=== PATIENT | female | born 1995 | race Caucasian/White ===

== ENCOUNTER 2020-10-23 13:33 | Outpatient (CLI) | payer OTHER ==
[2020-10-23 14:32] VITALS: BP 112/52; PULSE 95; RESP 14; TEMP 97.6
--- NOTE | 2020-10-28 16:39 | P.MSEPDOC ---
Presenting Problems - Arrival Data Date of Arrival on Unit: 10/23/20 Time of Arrival on Unit: 13:30 Mode of Transport: Ambulatory - Complaint OB-Reason for Admission/Chief Complaint: Other Comment: reports swelling/tingling in hands/feet, headache treated with tylenol, Medical History - Information : 3 Para: 2 Term: 2 : 0 Abortions: Spontaneous or Elective: 0 Number of Living Children: 2 - Gestational Age Gestational Age by SANDHYA (wks/days): 26 Weeks and 0 Days - History Complications: Prior , Placenta Previa Review of Systems - Review of Systems Constitutional: No problems Breast: No problems ENT: No problems Cardiovascular: No problems Respiratory: No problems Gastrointestinal: No problems Genitourinary: No problems Musculoskeletal: No problems Neurological: No problems Skin: No problems Vital Signs - Temperature Temperature: 97.6 F Temperature Source: Oral - Pulse Right Brachial Pulse Rate: 95 Pulse Assessment Method: Automatic Cuff - Respirations Respiratory Rate: 14 Oxygen Delivery Method: Room Air - Blood Pressure Right Arm Blood Pressure: 112/52 Blood Pressure Mean: 72 Blood Pressure Source: Automatic Cuff Medical Screen Scoring (Pre) - Cervical Exam Dilation: Exam Deferred Effacement: Exam Deferred - Uterine Contractions Frequency: N/A Duration: N/A Intensity: N/A - Maternal Vital Signs Maternal Temperature: N/A Maternal Blood Pressure: N/A Signs of Preeclampsia: Headache = 1 Maternal Respirations: N/A - Maternal Trauma Maternal Trauma: N/A - Assessment - Baby A Baseline FHR: 125 Heart Rate - NICHD Category: Category I (Normal) = 0 NST: Reactive Position: N/A - Total Score - Baby A Total Score - Baby A: 1 - Total Score - Baby B Total Score - Baby B: 1 - Total Score - Baby C Total Score - Baby C: 1 - Level of Risk - Baby A Level of Risk - Baby A: Low (0-5) - Level of Risk - Baby B Level of Risk - Baby B: Low (0-5) - Level of Risk - Baby C Level of Risk - Baby C: Low (0-5) Physician Notification (Pre) - Physician Notified Physician Notified Date: 10/23/20 Physician Notified Time: 14:20 New Order Received: Yes - Notification Comment Comment: reported visit, pt DOM, reported complaints as noted, physical assessment and v/s, movement active per pt and audible, no contractions, pain scale 0 Disposition - Disposition OB Disposition: Discharge to home Discharge Date: 10/23/20 Discharge Time: 14:30 I agree with the RN Medical Screening Exam: Yes Case reviewed; plan agreed upon as documented in EMR&OBIX.: Yes Diagnosis: RELATED CONDITIONS, UNSPECIFIED, SECOND TRIMESTER
== END 2020-10-23 14:30 | disposition home or self-care (01) ==
LOC: FBPOP 13:33
PROVIDERS: ATTEND Obstetrics & Gynecology
DX: O26.892 Other specified pregnancy related conditions, second trimester (principal); R51.9 Headache, unspecified; Z3A.26 26 weeks gestation of pregnancy
CPT/HCPCS: 99213

== ENCOUNTER 2020-12-24 12:11 | Emergency (ER) | payer OTHER ==
[2020-12-24 12:18] VITALS: BP 110/75; PULSE 82; RESP 21; TEMP 98.8
[2020-12-24] MEDS ORDERED: ALBUTEROL HFA INHALER INHALATION STA (12:28)
--- NOTE | 2020-12-24 12:34 | ED ---
SOB HPI - General Stated Complaint: VIN Time Seen by Provider: 12/24/20 12:11 Source: patient, EMS, RN notes reviewed Mode of arrival: EMS Limitations: no limitations - History of Present Illness Initial Comments: Is a 25-year-old female who currently is approximately 35 weeks and also has had history of pneumonia in the past but no history of diagnosed asthma or lung disease who states she's had shortness of breath and cough for the past 3 days getting worse today. She also has exertional dyspnea. Some discomfort. No fevers chills or sweats no known COVID-19 exposure no palpitations no dizziness no other symptoms no other modifying factors she does state that she is had inhalers in the past week she's had pneumonia. MD Complaint: shortness of breath, cough - Related Data Home Medications Medication Instructions Recorded Confirmed Pnv,Calcium 72/Iron/Folic Acid 1 tablet PO DAILY 10/23/20 12/24/20 [ Plus Tablet] Ferrous Sulfate [Feosol] 325 mg PO DAILY 12/24/20 12/24/20 Allergies Allergy/AdvReac Type Severity Reaction Status Date / Time Penicillins AdvReac Rash/Hives Verified 12/24/20 13:45 Review of Systems ROS Statement: Those systems with pertinent positive or pertinent negative responses have been documented in the HPI. ROS Other: All systems not noted in ROS Statement are negative. Past Medical History Past Medical History: No Reported History History of Any Multi-Drug Resistant Organisms: None Reported Past Surgical History: Section Past Psychological History: No Psychological Hx Reported Smoking Status: Never smoker Past Alcohol Use History: None Reported Past Drug Use History: None Reported General Exam - General Exam Comments Initial Comments: This is a well-developed well-nourished awake alert oriented 3 female Limitations: no limitations General appearance: alert, in no apparent distress Head exam: Present: atraumatic, normocephalic, normal inspection Eye exam: Present: normal appearance, PERRL, EOMI. Absent: scleral icterus, conjunctival injection, periorbital swelling ENT exam: Present: normal exam, mucous membranes moist Neck exam: Present: normal inspection. Absent: tenderness, meningismus, lymphadenopathy Respiratory exam: Present: decreased breath sounds, other (Occasional expiratory wheeze at the bases). Absent: respiratory distress, wheezes, rales, rhonchi, stridor, chest wall tenderness Cardiovascular Exam: Present: regular rate, normal rhythm, normal heart sounds. Absent: systolic murmur, diastolic murmur, rubs, gallop, clicks GI/Abdominal exam: Present: soft, normal bowel sounds, other (Uterus consistent with the stated gestational age). Absent: distended, tenderness, guarding, rebound, rigid Extremities exam: Present: normal inspection, full ROM, normal capillary refill. Absent: tenderness, pedal edema, joint swelling, calf tenderness Back exam: Present: normal inspection Neurological exam: Present: alert, oriented X3, CN II-XII intact Psychiatric exam: Present: normal affect, normal mood Skin exam: Present: warm, dry, intact, normal color. Absent: rash Course Vital Signs 12/24/20 12/24/20 12:11 12:18 Temperature 98.8 F Pulse Rate 82 Respiratory 20 21 Rate Blood Pressure 110/75 O2 Sat by Pulse 95 Oximetry Medical Decision Making - Medical Decision Making Patient did get improvement after using the inhaler at did discuss the findings with her the presentation is consistent with bronchitis and bronchospasm she will be sent home with the inhaler she is a follow-up with Dr. edouard when necessary - Lab Data Result diagrams: 12/24/20 12:41 12/24/20 12:41 Lab Results 12/24/20 12/24/20 12/24/20 Range/Units 12:41 12:41 12:41 WBC 7.8 (3.8-10.6) k/uL RBC 3.59 L (3.80-5.40) m/uL Hgb 11.5 (11.4-16.0) gm/dL Hct 32.3 L (34.0-46.0) % MCV 89.9 (80.0-100.0) fL MCH 32.1 (25.0-35.0) pg MCHC 35.8 (31.0-37.0) g/dL RDW 12.6 (11.5-15.5) % Plt Count 173 (150-450) k/uL MPV 9.7 Neutrophils % (Manual) 72 % Band Neuts % (Manual) 1 % Lymphocytes % (Manual) 21 % Monocytes % (Manual) 2 % Eosinophils % (Manual) 4 % Neutrophils # (Manual) 5.60 (1.3-7.7) k/uL Lymphocytes # (Manual) 1.64 (1.0-4.8) k/uL Monocytes # (Manual) 0.16 (0-1.0) k/uL Eosinophils # (Manual) 0.31 (0-0.7) k/uL Nucleated RBCs 0 (0-0) /100 WBC Manual Slide Review Performed PT 9.6 (9.0-12.0) sec INR 0.9 (<1.2) APTT 21.9 L (22.0-30.0) sec D-Dimer 0.81 H (<0.60) mg/L FEU Sodium 136 L (137-145) mmol/L Potassium 4.1 (3.5-5.1) mmol/L Chloride 110 H (98-107) mmol/L Carbon Dioxide 20 L (22-30) mmol/L Anion Gap 6 mmol/L BUN 4 L (7-17) mg/dL Creatinine 0.47 L (0.52-1.04) mg/dL Est GFR (CKD-EPI)AfAm >90 (>60 ml/min/1.73 sqM) Est GFR (CKD-EPI)NonAf >90 (>60 ml/min/1.73 sqM) Glucose 72 L (74-99) mg/dL Plasma Lactic Acid Arnol (0.7-2.0) mmol/L Calcium 8.7 (8.4-10.2) mg/dL Magnesium 1.6 (1.6-2.3) mg/dL Total Bilirubin 0.7 (0.2-1.3) mg/dL AST 19 (14-36) U/L ALT 8 (4-34) U/L Alkaline Phosphatase 186 H (38-126) U/L Creatine Kinase 39 (30-135) U/L Troponin I (0.000-0.034) ng/mL NT-Pro-B Natriuret Pep pg/mL Total Protein 5.8 L (6.3-8.2) g/dL Albumin 3.0 L (3.5-5.0) g/dL Coronavirus (PCR) (Not Detectd) 12/24/20 12/24/20 12/24/20 Range/Units 12:41 12:41 12:41 WBC (3.8-10.6) k/uL RBC (3.80-5.40) m/uL Hgb (11.4-16.0) gm/dL Hct (34.0-46.0) % MCV (80.0-100.0) fL MCH (25.0-35.0) pg MCHC (31.0-37.0) g/dL RDW (11.5-15.5) % Plt Count (150-450) k/uL MPV Neutrophils % (Manual) % Band Neuts % (Manual) % Lymphocytes % (Manual) % Monocytes % (Manual) % Eosinophils % (Manual) % Neutrophils # (Manual) (1.3-7.7) k/uL Lymphocytes # (Manual) (1.0-4.8) k/uL Monocytes # (Manual) (0-1.0) k/uL Eosinophils # (Manual) (0-0.7) k/uL Nucleated RBCs (0-0) /100 WBC Manual Slide Review PT (9.0-12.0) sec INR (<1.2) APTT (22.0-30.0) sec D-Dimer (<0.60) mg/L FEU Sodium (137-145) mmol/L Potassium (3.5-5.1) mmol/L Chloride (98-107) mmol/L Carbon Dioxide (22-30) mmol/L Anion Gap mmol/L BUN (7-17) mg/dL Creatinine (0.52-1.04) mg/dL Est GFR (CKD-EPI)AfAm (>60 ml/min/1.73 sqM) Est GFR (CKD-EPI)NonAf (>60 ml/min/1.73 sqM) Glucose (74-99) mg/dL Plasma Lactic Acid Arnol 0.7 (0.7-2.0) mmol/L Calcium (8.4-10.2) mg/dL Magnesium (1.6-2.3) mg/dL Total Bilirubin (0.2-1.3) mg/dL AST (14-36) U/L ALT (4-34) U/L Alkaline Phosphatase (38-126) U/L Creatine Kinase (30-135) U/L Troponin I <0.012 (0.000-0.034) ng/mL NT-Pro-B Natriuret Pep 113 pg/mL Total Protein (6.3-8.2) g/dL Albumin (3.5-5.0) g/dL Coronavirus (PCR) (Not Detectd) 12/24/20 Range/Units 12:41 WBC (3.8-10.6) k/uL RBC (3.80-5.40) m/uL Hgb (11.4-16.0) gm/dL Hct (34.0-46.0) % MCV (80.0-100.0) fL MCH (25.0-35.0) pg MCHC (31.0-37.0) g/dL RDW (11.5-15.5) % Plt Count (150-450) k/uL MPV Neutrophils % (Manual) % Band Neuts % (Manual) % Lymphocytes % (Manual) % Monocytes % (Manual) % Eosinophils % (Manual) % Neutrophils # (Manual) (1.3-7.7) k/uL Lymphocytes # (Manual) (1.0-4.8) k/uL Monocytes # (Manual) (0-1.0) k/uL Eosinophils # (Manual) (0-0.7) k/uL Nucleated RBCs (0-0) /100 WBC Manual Slide Review PT (9.0-12.0) sec INR (<1.2) APTT (22.0-30.0) sec D-Dimer (<0.60) mg/L FEU Sodium (137-145) mmol/L Potassium (3.5-5.1) mmol/L Chloride (98-107) mmol/L Carbon Dioxide (22-30) mmol/L Anion Gap mmol/L BUN (7-17) mg/dL Creatinine (0.52-1.04) mg/dL Est GFR (CKD-EPI)AfAm (>60 ml/min/1.73 sqM) Est GFR (CKD-EPI)NonAf (>60 ml/min/1.73 sqM) Glucose (74-99) mg/dL Plasma Lactic Acid Arnol (0.7-2.0) mmol/L Calcium (8.4-10.2) mg/dL Magnesium (1.6-2.3) mg/dL Total Bilirubin (0.2-1.3) mg/dL AST (14-36) U/L ALT (4-34) U/L Alkaline Phosphatase (38-126) U/L Creatine Kinase (30-135) U/L Troponin I (0.000-0.034) ng/mL NT-Pro-B Natriuret Pep pg/mL Total Protein (6.3-8.2) g/dL Albumin (3.5-5.0) g/dL Coronavirus (PCR) Not Detected (Not Detectd) - EKG Data -: EKG Interpreted by Me EKG Comments: Sinus rhythm of 81 ME interval 156 QRS 78 QT since QTC 394/457 nonspecific lateral configuration - Radiology Data Radiology results: report reviewed (I did review the imaging and report no acute findings are seen.), image reviewed Disposition Clinical Impression: Acute bronchitis, Bronchospasm Disposition: HOME SELF-CARE Condition: Good Instructions (If sedation given, give patient instructions): Bronchospasm (ED), Acute Bronchitis (ED) Additional Instructions: Use the inhaler 2 puffs 4 times a day when necessary Is patient prescribed a controlled substance at d/c from ED?: No Referrals: None,Stated [Primary Care Provider] - 1-2 days
[2020-12-24 12:54] LABS: HCT 32.3 % (34.0-46.0); HGB 11.5 gm/dL (11.4-16.0); MCH 32.1 pg (25.0-35.0); MCHC 35.8 g/dL (31.0-37.0); MCV 89.9 fL (80.0-100.0); Mean Platelet Volume 9.7; Platelet Count 173 k/uL (150-450); RBC 3.59 m/uL (3.80-5.40); RDW 12.6 % (11.5-15.5); WBC 7.8 k/uL (3.8-10.6)
[2020-12-24 13:06] LABS: ALT 8 U/L (4-34); AST 19 U/L (14-36); African American GFR (CKD) >90 (>60 ml/min/1.73 sqM); Alkaline Phosphatase 186 U/L (38-126); Anion Gap 6 mmol/L; Blood Urea Nitrogen 4 mg/dL (7-17); Calcium 8.7 mg/dL (8.4-10.2); Carbon Dioxide 20 mmol/L (22-30); Chloride 110 mmol/L (98-107); Creatine Kinase 39 U/L (30-135); Glucose 72 mg/dL (74-99); Magnesium 1.6 mg/dL (1.6-2.3); Non-African American GFR(CKD) >90 (>60 ml/min/1.73 sqM); Potassium 4.1 mmol/L (3.5-5.1); Sodium 136 mmol/L (137-145); Total Bilirubin 0.7 mg/dL (0.2-1.3); Total Protein 5.8 g/dL (6.3-8.2)
--- NOTE | 2020-12-24 13:06 | XR ---
EXAMINATION TYPE: XR chest 2V DATE OF EXAM: 12/24/2020 COMPARISON: NONE HISTORY: Chest pain TECHNIQUE: Frontal and lateral views of the chest are obtained. FINDINGS: There is no focal air space opacity. No evidence for pneumothorax. No pleural effusion. The cardiac silhouette size is within normal limits. The osseous structures are grossly intact. IMPRESSION: 1. No acute cardiopulmonary process.
[2020-12-24 13:22] LABS: INR 0.9 (<1.2); Partial Thromboplastin Time 21.9 sec (22.0-30.0); Prothrombin Time 9.6 sec (9.0-12.0)
[2020-12-24 13:35] LABS: Band Neutrophils % 1 %; D-Dimer 0.81 mg/L FEU (<0.60); Eosinophils # (M) 0.31 k/uL (0-0.7); Lymphocytes # (M) 1.64 k/uL (1.0-4.8); Monocytes # (M) 0.16 k/uL (0-1.0); Neutrophils % (M) 72 %; Nucleated Red Blood Cells 0 /100 WBC (0-0); Total Cells Counted 100
[2020-12-24] MEDS ORDERED: ACETAMINOPHEN TAB 325 MG TAB PO STA (14:20)
[2020-12-24] MEDS ORDERED: ONDANSETRON 4 MG/2 ML VIAL IVP STA (15:00)
--- NOTE | 2020-12-24 15:42 | CT ---
EXAMINATION TYPE: CT angio chest DATE OF EXAM: 12/24/2020 COMPARISON: HISTORY: dyspnea CT DLP: 297.7 mGycm Automated exposure control for dose reduction was used. CONTRAST: CTA scan of the thorax is performed with IV Contrast, patient injected with 100 mL of Isovue 370, pul monary embolism protocol. MIP images are created and reviewed. 3D reconstructed images are created on an independent workstation and reviewed. FINDINGS: LUNGS: The lungs are remarkable for bilateral patchy airspace disease. There is no pleural effusion o r pneumothorax seen. The tracheobronchial tree is patent. AORTA: No additional significant abnormality is seen. There are 4 super aortic branch vessels presen t. MEDIASTINUM: There is less than satisfactory enhancement of the pulmonary artery and its branches, th ere is no CT evidence for pulmonary embolism. There are no greater than 1 cm hilar or mediastinal ly mph nodes. No pericardial effusion is seen. OTHER: No additional significant abnormality is seen. IMPRESSION: EXAM IS NONDIAGNOSTIC TO EXCLUDE PULMONARY EMBOLUS. Correlate for Covid, pneumonia.
== END 2020-12-24 16:26 | disposition home or self-care (01) ==
LOC: EC 12:11
DX: O99.513 Diseases of the respiratory system complicating pregnancy, third trimester (principal); J20.9 Acute bronchitis, unspecified; Z3A.35 35 weeks gestation of pregnancy
CPT/HCPCS: 36415; 94640; 93005; 85379; 83880; 80053; 82550; 83605; 83735; 84484; 85025; 85610; 85730; 87635; 71046; 71275; 99285; 96374; Q9967

== ENCOUNTER 2021-01-24 06:08 | Inpatient (IN) | payer OTHER ==
[2021-01-20 15:27] VITALS: BMI 34.0
[2021-01-24] MEDS ORDERED: LACTATED RINGERS 1,000 ML IV ONE (06:23)
[2021-01-24] MEDS ORDERED: CLINDAMYCIN 900 MG in DEXTROSE 5% IN WATER 50 ML IVPB ONE ×2 (06:45)
[2021-01-24] MEDS ORDERED: GENTAMICIN 300 MG in SODIUM CHLORIDE 0.9% 100 ML IVPB ONE (06:45)
[2021-01-24] MEDS ORDERED: CITRIC ACID-SODIUM CITRATE 15 ML CUP PO ONE (06:45)
[2021-01-24 07:07] LABS: HCT 33.6 % (34.0-46.0); HGB 11.8 gm/dL (11.4-16.0); MCH 31.6 pg (25.0-35.0); MCHC 35.1 g/dL (31.0-37.0); MCV 90.1 fL (80.0-100.0); Mean Platelet Volume 10.1; Platelet Count 175 k/uL (150-450); RBC 3.72 m/uL (3.80-5.40); RDW 12.9 % (11.5-15.5)
[2021-01-24] MEDS ORDERED: ONDANSETRON 4 MG/2 ML VIAL ONE (07:56)
[2021-01-24] MEDS ORDERED: KETOROLAC 15 MG/ML 1 ML VIAL ONE (07:56)
[2021-01-24] MEDS ORDERED: MORPHINE SULFATE (PF) 0.3 MG/0.3 ML SYR ONE (07:56)
[2021-01-24] MEDS ORDERED: ZOLPIDEM 5 MG TAB PO PRN (08:45)
[2021-01-24] MEDS ORDERED: NALOXONE 0.4 MG/ML 1 ML VIAL IV PRN (08:45)
[2021-01-24] MEDS ORDERED: ONDANSETRON 4 MG/2 ML VIAL IVP PRN (08:45)
[2021-01-24] MEDS ORDERED: diphenhydrAMINE 50 MG CAP PO PRN (08:45)
[2021-01-24] MEDS ORDERED: MEASLES-MUMPS-RUBELLA VACC/PF 12,500 UNIT/0.5 ML VIAL SQ ONE (08:45)
[2021-01-24] MEDS ORDERED: diphenhydrAMINE 25 MG CAP PO PRN (08:45)
[2021-01-24] MEDS ORDERED: diphenhydrAMINE 50 MG/ML 1 ML VIAL IVP PRN ×2 (08:45)
[2021-01-24] MEDS ORDERED: SIMETHICONE 80 MG CHEWABLE PO PRN (08:45)
[2021-01-24] MEDS ORDERED: METOCLOPRAMIDE 5 MG/ML 2 ML VIAL IVP PRN (08:45)
--- NOTE | 2021-01-24 08:50 | P.HPOB ---
History of Present Illness H&P Date: 01/24/21 Chief Complaint: Intrauterine at term: Previous sections Aminata is a 25-year-old at 39 weeks gestation arise for repeat section. Her [facility] course included a transfer of care to [place] at approximately 33 weeks. It was during my the - that she receive [place] gamma and sugar test at her primary obstetricians prior to starting to see me, today she revealed that she not believe she got her [place] gamma prior to her transfer. I do not surfacing her until 33 weeks of . We will check her Rh antibody today and the weight baby's blood type for RhoGAM administration. Her course otherwise from my standpoint was unremarkable. Her vital signs are stable and she is afebrile. Her heart is regular, lungs are clear, extremities without pain. Abdomen soft gravid uterus is noted. heart tones baseline is somewhat between 05/13/2020 but otherwise reactive. Antibiotics have Been provided. All questions are answered for her and risks/benefits/alternatives were reviewed with the patient in detail. Past Medical History Past Medical History: No Reported History Additional Past Medical History / Comment(s): anemia, recent bronchitis now resolved History of Any Multi-Drug Resistant Organisms: None Reported Past Surgical History: Adenoidectomy, Section, Tonsillectomy Additional Past Surgical History / Comment(s): tubes in ears Past Anesthesia/Blood Transfusion Reactions: No Reported Reaction Past Psychological History: Depression Smoking Status: Never smoker Past Alcohol Use History: None Reported Past Drug Use History: None Reported - Past Family History Mother Family Medical History: No Reported History Medications and Allergies Home Medications Medication Instructions Recorded Confirmed Type Pnv,Calcium 72/Iron/Folic Acid 1 tablet PO DAILY 10/23/20 01/24/21 History [ Plus Tablet] Ferrous Sulfate [Feosol] 325 mg PO DAILY 12/24/20 01/24/21 History Allergies Allergy/AdvReac Type Severity Reaction Status Date / Time amoxicillin AdvReac Rash/Hives Verified 01/24/21 06:22 Exam Osteopathic Statement: *. No significant issues noted on an osteopathic structural exam other than those noted in the History and Physical/Consult. Vital Signs Temp Pulse Resp BP Pulse Ox 01/24/21 06:26 97.4 F L 75 16 113/66 97 Intake and Output 01/23/21 01/24/21 01/24/21 22:59 06:59 14:59 Other: Weight 78.471 kg - OBG Physical Exam Breast: both: normal (no masses) Abdomen: bowel sounds normal, no diffuse tenderness, no bruit present, no guarding noted, no hepatomegaly, no splenomegaly, no mass Vulva: both: normal Vagina: normal moisture, no discharge Cervix: no lesion, no discharge Uterus: normal size, normal contour Adnexa: both: normal Anus/Rectum: normal perianal skin, no rectal mass, no hemorrhoids, heme negative Results Result Diagrams: 01/24/21 06:30 Abnormal Lab Results - Last 24 Hours (Table) 01/24/21 Range/Units 06:30 RBC 3.72 L (3.80-5.40) m/uL Hct 33.6 L (34.0-46.0) %
--- NOTE | 2021-01-24 08:55 | P.OP ---
Date of Procedure: 01/24/21 Preoperative Diagnosis: Intrauterine at term: Prior sections Postoperative Diagnosis: Same with significant adhesions from prior section Procedure(s) Performed: Repeat low transverse section with lysis of adhesions Anesthesia: spinal Surgeon: Fortino Sandoval Plastic Surgery Specialist #1: Nydia Felton Estimated Blood Loss (ml): 580 IV fluids (ml): 1,100 Urine output (ml): 100 Pathology: none sent Condition: stable Disposition: floor Operative Findings: male scores of 9 and 10 at one and 5 minutes Pax and weight was 8 lbs. 6 oz. is noted that she has significant adhesions particularly within the taken tissues and omentum over the uterus. These were lysed free. There is also noted that during the delivery a extension up into the uterine muscle of approximate 3 cm full-thickness from what I can only assume is from her prior section whether there was a T or a bandage scissor used because the laceration or the anterior uterine muscle was actually above where we had extended the incision. Description of Procedure: Patient was taken to the operating suite where a spinal anesthetic was found be adequate. She was prepped and draped in normal sterile fashion and placed in the dorsal supine position with leftward tilt. Initially a Pfannenstiel skin incision was made and this incision was then carried through to the underlying layer of the fascia was second knife. Fascia was then nicked in the midline and this opening was extended laterally with Leal scissors. Dissection of scar tissue get through the incision fully was made. Once this was completed the ovaries are reviewed peritoneal opening noted. The superior and inferior aspect of the fascial incision however was elevated and bluntly and sharply dissected off the rectus muscles with careful visualization of bowel and bladder throughout this process. Once this was completed the peritoneal layer was then extended predominantly inferiorly with good visualization of both bowel bladder. Once this was completed bladder flap was identified elevated and entered with Metzenbaums. Scissors bladder was then bluntly dissected out of the operative field. Bladder blade was placed knife was then used to incise the uterus. This opening was then fully developed with a hemostat and then extended bluntly. Head was then atraumatically delivered followed by anterior posterior shoulders from right occiput anterior position. Mouth nares were then bulb suctioned and baby was fully delivered umbilical cords clamped cut usual fashion an nursery personnel was present to assume care. Placenta was then delivered intact Pitocin was added to the IV. Uterus was then exteriorized at this point the approximately 3 cm laceration or tear in the uterine wall was noted and was repaired with 0 Vicryl suture in running fashion down to level of our incision the incision was then closed in usual fashion with 0 Vicryl suture in running locking fashion with the first layer and then a running second layer to imbricate. Once excellent hemostasis was obtained blood and debris was suctioned from the posterior cul-de-sac and the uterus was reinserted into the abdomen. Peritoneal layer was then identified and marked with hemostats and closed with 0 Vicryl suture. Fascial layer was then closed with 0 Vicryl suture one layer of 3-0 Vicryl was used to reapproximate the subcuticular tissues the skin had undermining done to allow for the incision into blade flat again and 3- 0 Vicryl was then used to close incision subcuticularly. Sponge, lap, needle counts were all correct 2. Patient was then taken to the recovery room in stable and satisfactory condition.
[2021-01-24] MEDS: LACTATED RINGERS 1,000 ML IV SCH ×4 (09:18→21:20)
[2021-01-24] MEDS ORDERED: MORPHINE SULFATE 4 MG/ML SYRINGE IVP PRN (10:25)
[2021-01-24 10:27] LABS: Eosinophils # (M) 0.21 k/uL (0-0.7); Lymphocytes # (M) 1.68 k/uL (1.0-4.8); Monocytes # (M) 0.35 k/uL (0-1.0); Neutrophils # (M) 4.76 k/uL (1.3-7.7); Neutrophils % (M) 68 %; Nucleated Red Blood Cells 0 /100 WBC (0-0); Total Cells Counted 100
[2021-01-24 10:28] LABS: Anisocytosis (M) Present; Poikilocytosis (M) Present
[2021-01-24] MEDS: ACETAMINOPHEN TAB 500 MG TAB PO SCH ×2 (12:19→21:20)
[2021-01-24] MEDS: KETOROLAC 15 MG/ML 1 ML VIAL IVP SCH (16:07)
[2021-01-24] MEDS: SENNOSIDES-DOCUSATE SODIUM 1 EACH TAB PO SCH (21:20)
[2021-01-24] MEDS ORDERED: ALBUTEROL NEBULIZED 1.25 MG/3 ML INHALATION SCH (21:30)
[2021-01-25] MEDS: ACETAMINOPHEN TAB 500 MG TAB PO SCH ×4 (00:51→20:06)
[2021-01-25] MEDS: KETOROLAC 15 MG/ML 1 ML VIAL IVP SCH ×3 (01:21→08:08)
[2021-01-25] MEDS: LACTATED RINGERS 1,000 ML IV SCH (01:22)
[2021-01-25] MEDS ORDERED: ALBUTEROL NEBULIZED 2.5 MG/3 ML INHALATION ONE (01:42)
[2021-01-25] MEDS: ALBUTEROL NEBULIZED 2.5 MG/3 ML INHALATION SCH ×5 (01:48→19:06)
[2021-01-25 05:53] LABS: HCT 28.7 % (34.0-46.0); MCH 31.3 pg (25.0-35.0); MCHC 34.1 g/dL (31.0-37.0); MCV 91.8 fL (80.0-100.0); Mean Platelet Volume 10.4; Platelet Count 133 k/uL (150-450); RBC 3.13 m/uL (3.80-5.40); RDW 13.4 % (11.5-15.5); WBC 8.1 k/uL (3.8-10.6)
[2021-01-25 05:59] LABS: HGB 9.8 gm/dL (11.4-16.0)
[2021-01-25 06:59] LABS: Band Neutrophils % 2 %; Eosinophils # (M) 0.08 k/uL (0-0.7); Lymphocytes # (M) 1.54 k/uL (1.0-4.8); Monocytes # (M) 0.08 k/uL (0-1.0); Neutrophils % (M) 77 %; Nucleated Red Blood Cells 0 /100 WBC (0-0); Total Cells Counted 100
[2021-01-25 07:01] LABS: Large Platelets Present; Polychromasia Present
--- NOTE | 2021-01-25 07:38 | P.PNOBGPC ---
Subjective - Subjective Principal diagnosis: Postop day 1 Interval history: Aminata is seen and evaluated. She is able to ambulate and void without difficulty. She is tolerating her diet. It is noted that she is somewhat hypotensive with blood pressures in the high 80s and low 90s over 50s. However her pulse is in the 70s. She denies dizziness or lightheadedness or other signs or symptoms of hypovolemic shock. We will plan to continue her care for now. Her CBC is pending and that may play into how we moved forward, but her blood pressures even yesterday were 90s to low 100 100s over 50s to 60s so this seems consistent with what she is normally doing and this morning she is just waking up from sleep and otherwise feeling well. We'll continue to monitor this closely. All questions are answered for her at this time. Patient reports: Reports appetite normal, Reports voiding normally, Reports pain well controlled, Reports ambulating normally : doing well Objective - Vital Signs Latest vital signs: Vital Signs Temp Pulse Pulse Resp BP Pulse Ox 01/25/21 04:00 98 F 73 15 90/63 97 01/25/21 01:52 78 01/25/21 01:48 71 01/25/21 00:00 98 F 71 15 89/61 97 01/24/21 20:00 98 F 77 15 111/70 01/24/21 16:00 97.7 F 66 16 99/48 98 01/24/21 12:00 97.7 F 58 L 16 98/56 99 01/24/21 10:50 66 16 100/44 99 01/24/21 10:20 51 L 16 91/61 98 01/24/21 09:50 65 16 96/45 94 L 01/24/21 09:35 66 16 145/60 01/24/21 09:20 65 16 98/46 01/24/21 09:05 68 16 84/50 01/24/21 08:50 97.0 F L 82 16 88/49 Intake and Output 01/24/21 01/25/21 01/25/21 22:59 06:59 14:59 Output Total 300 150 Balance -300 -150 Output: Urine 300 150 Uretheral (Herring) 200 Other: # Voids 1 1 - Exam Lungs: bilateral: normal Chest: Normal S1, Normal S2 Extremities: Present: normal Abdomen: Present: normal appearance, soft. Absent: distention, tenderness Incision: Present: normal, dry, intact Uterus: Present: normal, firm - Labs Labs: Abnormal Lab Results - Last 24 Hours (Table) 01/25/21 Range/Units 05:20 RBC 3.13 L (3.80-5.40) m/uL Hgb 9.8 L D (11.4-16.0) gm/dL Hct 28.7 L (34.0-46.0) % Plt Count 133 L (150-450) k/uL
[2021-01-25] MEDS: SENNOSIDES-DOCUSATE SODIUM 1 EACH TAB PO SCH ×2 (08:08→20:06)
--- NOTE | 2021-01-25 10:21 | P.PN ---
Progress Note - Text Patient was seen at 6:20 AM in the morning. Postop day 1 from under spinal anesthesia with intrathecal morphine given for postop pain management. Patient is doing well. Pain is well controlled. On visual analog scale Mild itching present No nausea or vomiting reported. No Headache or weakness and numbness in the legs. No complications from spinal anesthesia.
[2021-01-25] MEDS: HYDROmorphone 2 MG TAB PO PRN ×2 (15:44→23:05)
[2021-01-25] MEDS: IBUPROFEN 600 MG TAB PO PRN (18:24)
[2021-01-26] MEDS: LACTATED RINGERS 1,000 ML IV SCH (00:23)
[2021-01-26] MEDS: IBUPROFEN 600 MG TAB PO PRN ×2 (04:06→10:32)
[2021-01-26] MEDS: ACETAMINOPHEN TAB 500 MG TAB PO SCH ×2 (05:52→08:10)
[2021-01-26] MEDS: ALBUTEROL NEBULIZED 2.5 MG/3 ML INHALATION SCH ×2 (08:04→09:07)
[2021-01-26] MEDS: SENNOSIDES-DOCUSATE SODIUM 1 EACH TAB PO SCH (08:10)
--- NOTE | 2021-01-26 09:01 | P.DS ---
Providers Date of admission: 01/24/21 06:08 Expected date of discharge: 01/26/21 Attending physician: Fortino Sandoval Primary care physician: Stated None Hospital Course: Aminata is doing very well post op day 2. She is ambulating, voiding and tolerating her diet. Voices complaints. Vital signs are stable and afebrile. Heart regular, lungs clear, extremities are without pain. Abdomen is soft, uterus is firm and incision is clean dry and intact. Assessment postop day 2. Plan discharged to home follow up with me in 1 week. Prescription for [place] and Motrin are forwarded to the pharmacy and all the questions are answered for her prior to discharge. She is stable for discharge at this time. Patient Condition at Discharge: Good Plan - Discharge Summary Discharge Rx Participant: Yes New Discharge Prescriptions: New Ibuprofen [Motrin] 600 mg PO Q6HR PRN #30 tab PRN Reason: Pain HYDROcodone/APAP 5-325MG [[place] 5-325] 1 tab PO Q4HR PRN #30 tab PRN Reason: Pain No Action Pnv,Calcium 72/Iron/Folic Acid [ Plus Tablet] 1 tablet PO DAILY Ferrous Sulfate [Feosol] 325 mg PO DAILY Discharge Medication List Pnv,Calcium 72/Iron/Folic Acid [ Plus Tablet] 1 tablet PO DAILY 10/23/20 [History] Ferrous Sulfate [Feosol] 325 mg PO DAILY 12/24/20 [History] HYDROcodone/APAP 5-325MG [[place] 5-325] 1 tab PO Q4HR PRN #30 tab 01/26/21 [Rx] Ibuprofen [Motrin] 600 mg PO Q6HR PRN #30 tab 01/26/21 [Rx] Follow up Appointment(s)/Referral(s): Fortino Sandoval DO [Doctor of Osteopathic Medicine] - 01/31/21 1:30 pm (6 week follow up March 07 @11am) Activity/Diet/Wound Care/Special Instructions: No heavy lifting, limit stairs and driving, and pelvic rest. If any high temperatures, heavy bleeding, or severe pain call my office Discharge Disposition: HOME SELF-CARE
[2021-01-26 09:12] VITALS: BP 109/55; RESP 16; TEMP 97.8
[2021-01-26 09:18] VITALS: PULSE 84
== END 2021-01-26 11:50 | disposition home or self-care (01) | DRG 788 ==
LOC: 4FBP 06:08
PROVIDERS: ADMIT Obstetrics & Gynecology; ATTEND Obstetrics & Gynecology
PROC: 10D00Z1 Extraction of Products of Conception, Low, Open Approach (ICD-10-PCS; principal; 2021-01-24 08:00)
DX: O34.211 Maternal care for low transverse scar from previous cesarean delivery (principal); K66.0 Peritoneal adhesions (postprocedural) (postinfection); Z37.0 Single live birth; Z3A.39 39 weeks gestation of pregnancy
CPT/HCPCS: 85025; 86762; 86850; 86900; 86901; 87340; 94640

== ENCOUNTER 2022-07-08 19:26 | Emergency (ER) | payer OTHER ==
[2022-07-08 19:52] VITALS: TEMP 97
[2022-07-08] MEDS ORDERED: ONDANSETRON 4 MG/2 ML VIAL IVP STA (21:40)
[2022-07-08] MEDS ORDERED: SODIUM CHLORIDE 0.9% 1,000 ML IV STA (21:40)
[2022-07-08] MEDS ORDERED: diphenhydrAMINE 50 MG/ML 1 ML VIAL IVP STA (21:41)
--- NOTE | 2022-07-08 21:41 | ED ---
Nausea/Vomiting/Diarrhea HPI - General Chief complaint: Nausea/Vomiting/Diarrhea Stated complaint: Vomiting-25 weeks preg. Time Seen by Provider: 07/08/22 21:33 Source: patient, RN notes reviewed, old records reviewed Mode of arrival: ambulatory Limitations: no limitations - History of Present Illness Initial comments: This is a 27-year-old female to the emergency department for evaluation. Patient presents today for evaluation regards to abdominal pain back pain. Positive 25 weeks. Significant nausea vomitus earlier today no travel history sick contacts no fevers. No traumas no surgeries. Patient otherwise no significant medical history takes no medications MD complaint: nausea, vomiting, abdominal pain, other (Back pain and cramping) -: hour(s) Description of Vomiting: food contents, watery Location: diffuse Radiation: other (Back) Severity: moderate Severity scale (1-10): 4 Quality: cramping Improves with: none Worsens with: none Context: other (Positive ) Associated Symptoms: loss of appetite, nausea/vomiting, weakness - Related Data Home Medications Medication Instructions Recorded Confirmed Vit No.180/Iron/Folic 1 tablet PO DAILY 10/23/20 01/24/21 [ Plus Tablet] Ferrous Sulfate [Feosol] 325 mg PO DAILY 12/24/20 01/24/21 Previous Rx's Medication Instructions Recorded HYDROcodone/APAP 5-325MG [[place] 1 tab PO Q4HR PRN #30 tab 01/26/21 5-325] Ibuprofen [Motrin] 600 mg PO Q6HR PRN #30 tab 01/26/21 Allergies Allergy/AdvReac Type Severity Reaction Status Date / Time amoxicillin AdvReac Rash/Hives Verified 07/08/22 19:49 Review of Systems ROS Statement: Those systems with pertinent positive or pertinent negative responses have been documented in the HPI. ROS Other: All systems not noted in ROS Statement are negative. Past Medical History Past Medical History: No Reported History Additional Past Medical History / Comment(s): anemia History of Any Multi-Drug Resistant Organisms: None Reported Past Surgical History: Adenoidectomy, Section, Ear Surgery, Tonsillectomy Additional Past Surgical History / Comment(s): tubes in ears Past Anesthesia/Blood Transfusion Reactions: No Reported Reaction Past Psychological History: Depression Smoking Status: Never smoker Past Alcohol Use History: None Reported Past Drug Use History: None Reported - Past Family History Mother Family Medical History: No Reported History General Exam Limitations: no limitations General appearance: alert, in no apparent distress Head exam: Present: atraumatic, normocephalic, normal inspection Eye exam: Present: normal appearance, PERRL, EOMI. Absent: scleral icterus, conjunctival injection, periorbital swelling ENT exam: Present: normal exam, mucous membranes moist Neck exam: Present: normal inspection. Absent: tenderness, meningismus, lymphadenopathy Respiratory exam: Present: normal lung sounds bilaterally. Absent: respiratory distress, wheezes, rales, rhonchi, stridor Cardiovascular Exam: Present: normal rhythm, tachycardia, normal heart sounds. Absent: systolic murmur, diastolic murmur, rubs, gallop, clicks GI/Abdominal exam: Present: soft, normal bowel sounds. Absent: distended, tenderness, guarding, rebound, rigid Extremities exam: Present: normal inspection, full ROM, normal capillary refill. Absent: tenderness, pedal edema, joint swelling, calf tenderness Back exam: Present: normal inspection Neurological exam: Present: alert, oriented X3, CN II-XII intact Psychiatric exam: Present: normal affect, normal mood Skin exam: Present: warm, dry, intact, normal color. Absent: rash Course Vital Signs 07/08/22 07/08/22 19:49 23:30 Temperature 97.0 F L Pulse Rate 121 H 94 Respiratory 18 15 Rate Blood Pressure 93/54 97/56 O2 Sat by Pulse 98 96 Oximetry - Reevaluation(s) Reevaluation #1: 07/08/22 23:17 Medical record is reviewed Reevaluation #2: 07/09/22 01:27 Patient informed of results and questions answered Reevaluation #3: 07/09/22 01:27 Symptoms improved here in the ER Medical Decision Making - Medical Decision Making 27 female department for evaluation patient resents today for evaluation of nausea vomiting abdominal pain back pain and diarrhea. Patient symptoms are dramatically improved now resolved here in the ER she can be discharged home - Lab Data Result diagrams: 07/08/22 21:53 07/08/22 21:53 Lab Results 07/08/22 07/08/22 07/08/22 Range/Units 21:53 21:53 21:53 WBC 9.4 (3.8-10.6) k/uL RBC 4.72 (3.80-5.40) m/uL Hgb 14.9 (11.4-16.0) gm/dL Hct 43.0 (34.0-46.0) % MCV 91.1 (80.0-100.0) fL MCH 31.5 (25.0-35.0) pg MCHC 34.6 (31.0-37.0) g/dL RDW 13.5 (11.5-15.5) % Plt Count 237 (150-450) k/uL MPV 11.1 Neutrophils % (Manual) 81 % Band Neuts % (Manual) 14 % Lymphocytes % (Manual) 4 % Monocytes % (Manual) 1 % Neutrophils # (Manual) 8.90 H (1.3-7.7) k/uL Lymphocytes # (Manual) 0.38 L (1.0-4.8) k/uL Monocytes # (Manual) 0.09 (0-1.0) k/uL Nucleated RBCs 0 (0-0) /100 WBC Manual Slide Review Performed Sodium 138 (137-145) mmol/L Potassium 4.7 (3.5-5.1) mmol/L Chloride 109 H (98-107) mmol/L Carbon Dioxide 17 L (22-30) mmol/L Anion Gap 12 mmol/L BUN 14 (7-17) mg/dL Creatinine 0.65 (0.52-1.04) mg/dL Est GFR (CKD-EPI)AfAm >90 (>60 ml/min/1.73 sqM) Est GFR (CKD-EPI)NonAf >90 (>60 ml/min/1.73 sqM) Glucose 102 H (74-99) mg/dL Plasma Lactic Acid Arnol 1.1 (0.7-2.0) mmol/L Calcium 9.0 (8.4-10.2) mg/dL Phosphorus 3.9 (2.5-4.5) mg/dL Magnesium 1.7 (1.6-2.3) mg/dL Total Bilirubin 0.7 (0.2-1.3) mg/dL AST 22 (14-36) U/L ALT 17 (4-34) U/L Alkaline Phosphatase 123 (38-126) U/L Troponin I (0.000-0.034) ng/mL Total Protein 7.8 (6.3-8.2) g/dL Albumin 4.4 (3.5-5.0) g/dL 07/08/22 Range/Units 21:53 WBC (3.8-10.6) k/uL RBC (3.80-5.40) m/uL Hgb (11.4-16.0) gm/dL Hct (34.0-46.0) % MCV (80.0-100.0) fL MCH (25.0-35.0) pg MCHC (31.0-37.0) g/dL RDW (11.5-15.5) % Plt Count (150-450) k/uL MPV Neutrophils % (Manual) % Band Neuts % (Manual) % Lymphocytes % (Manual) % Monocytes % (Manual) % Neutrophils # (Manual) (1.3-7.7) k/uL Lymphocytes # (Manual) (1.0-4.8) k/uL Monocytes # (Manual) (0-1.0) k/uL Nucleated RBCs (0-0) /100 WBC Manual Slide Review Sodium (137-145) mmol/L Potassium (3.5-5.1) mmol/L Chloride (98-107) mmol/L Carbon Dioxide (22-30) mmol/L Anion Gap mmol/L BUN (7-17) mg/dL Creatinine (0.52-1.04) mg/dL Est GFR (CKD-EPI)AfAm (>60 ml/min/1.73 sqM) Est GFR (CKD-EPI)NonAf (>60 ml/min/1.73 sqM) Glucose (74-99) mg/dL Plasma Lactic Acid Arnol (0.7-2.0) mmol/L Calcium (8.4-10.2) mg/dL Phosphorus (2.5-4.5) mg/dL Magnesium (1.6-2.3) mg/dL Total Bilirubin (0.2-1.3) mg/dL AST (14-36) U/L ALT (4-34) U/L Alkaline Phosphatase (38-126) U/L Troponin I <0.012 (0.000-0.034) ng/mL Total Protein (6.3-8.2) g/dL Albumin (3.5-5.0) g/dL - EKG Data -: EKG Interpreted by Me (EKG shows sinus rhythm 98 VT 142 QRS 75 QTC 394) Disposition Clinical Impression: Dehydration, Gastroenteritis, Nausea and vomiting during Disposition: HOME SELF-CARE Condition: Good Instructions (If sedation given, give patient instructions): Acute Nausea and Vomiting (ED) Is patient prescribed a controlled substance at d/c from ED?: No Referrals: None,Stated [Primary Care Provider] - 1-2 days Time of Disposition: 01:30
[2022-07-08 22:27] LABS: ALT 17 U/L (4-34); AST 22 U/L (14-36); African American GFR (CKD) >90 (>60 ml/min/1.73 sqM); Albumin 4.4 g/dL (3.5-5.0); Alkaline Phosphatase 123 U/L (38-126); Anion Gap 12 mmol/L; Blood Urea Nitrogen 14 mg/dL (7-17); Carbon Dioxide 17 mmol/L (22-30); Chloride 109 mmol/L (98-107); Glucose 102 mg/dL (74-99); Magnesium 1.7 mg/dL (1.6-2.3); Non-African American GFR(CKD) >90 (>60 ml/min/1.73 sqM); Phosphorus 3.9 mg/dL (2.5-4.5); Potassium 4.7 mmol/L (3.5-5.1); Sodium 138 mmol/L (137-145); Total Bilirubin 0.7 mg/dL (0.2-1.3); Total Protein 7.8 g/dL (6.3-8.2)
[2022-07-08] MEDS ORDERED: ACETAMINOPHEN IV (For NPO) 1,000 MG in EMPTY BAG 1 BAG IVPB STA (22:30)
[2022-07-08 23:18] LABS: HGB 14.9 gm/dL (11.4-16.0); MCH 31.5 pg (25.0-35.0); MCHC 34.6 g/dL (31.0-37.0); MCV 91.1 fL (80.0-100.0); Mean Platelet Volume 11.1; Platelet Count 237 k/uL (150-450); RBC 4.72 m/uL (3.80-5.40); RDW 13.5 % (11.5-15.5); WBC 9.4 k/uL (3.8-10.6)
[2022-07-09 00:08] LABS: Band Neutrophils % 14 %; Lymphocytes # (M) 0.38 k/uL (1.0-4.8); Monocytes # (M) 0.09 k/uL (0-1.0); Neutrophils % (M) 81 %; Nucleated Red Blood Cells 0 /100 WBC (0-0); Total Cells Counted 100
[2022-07-09 01:14] LABS: Appearance,Urine Cloudy (Clear); Bacteria,Urine Occasional /hpf; Bilirubin,Urine Negative (Negative); Blood,Urine Negative (Negative); Color,Urine Yellow; Glucose,Urine (UA) Negative (Negative); Hyaline Casts,Urine 16 /lpf (0-2); Ketones,Urine 3+ (Negative); Leukocyte Esterase,Urine Negative (Negative); Mucus,Urine Many /hpf; Nitrite,Urine Negative (Negative); Protein,Urine 1+ (Negative); RBC,Urine 3 /hpf (0-5); Squamous Epithelial Cell,Urine 16 /hpf (0-4); Urobilinogen,Urine <2.0 mg/dL (<2.0); WBC,Urine 2 /hpf (0-5)
[2022-07-09 01:27] LABS: Specific Gravity,Urine 1.048 (1.001-1.035)
[2022-07-09 01:49] VITALS: BP 100/61; PULSE 87; RESP 18
== END 2022-07-09 01:48 | disposition home or self-care (01) ==
LOC: EC 19:26
DX: O99.612 Diseases of the digestive system complicating pregnancy, second trimester (principal); O21.8 Other vomiting complicating pregnancy; K92.89 Other specified diseases of the digestive system; F32.A Depression, unspecified; Z88.0 Allergy status to penicillin; Z3A.25 25 weeks gestation of pregnancy
CPT/HCPCS: 36415; 93005; 80053; 83605; 83735; 84100; 84484; 85025; 81001; 99284; 96374; 96375 ×2; 96361; J1200; J2405; J0131

== ENCOUNTER 2022-07-25 20:40 | Emergency (ER) | payer OTHER ==
[2022-07-25 20:51] VITALS: RESP 18; TEMP 98
[2022-07-25] MEDS ORDERED: ACETAMINOPHEN TAB 500 MG TAB PO STA (21:50)
[2022-07-25] MEDS ORDERED: dexAMETHasone ORAL SOLUTION 4 MG/ML VIAL PO ONE (21:51)
[2022-07-25] MEDS ORDERED: IPRATROPIUM-ALBUTEROL 3 ML NEB INHALATION STA (21:51)
--- NOTE | 2022-07-25 22:09 | ED ---
URI HPI - General Chief Complaint: Upper Respiratory Infection Stated Complaint: 27 Weeks, SOB Time Seen by Provider: 07/25/22 21:34 Source: patient, RN notes reviewed Mode of arrival: ambulatory Limitations: no limitations - History of Present Illness Initial Comments: This is a pleasant 27-year-old female who is 27 weeks . Patient presents to the right department complaining of cough, runny nose, wheezing, and some shortness of breath. Patient has no history of asthma. Patient has been exposed to other ill individuals. Patient denying any abdominal pain or pelvic pain. No vaginal bleeding. No headache, no fever or chills, no changes in vision or hearing, no sore throat or difficulty with speech, no neck pain, no chest pain, no abdominal pain, no nausea or vomiting, no changes in urination or bowel movements, no numbness or tingling, no extremity pain, no skin rashes or lesions. Past medical, surgical, social, and family history reviewed. MD Complaint: cough, rhinorrhea, nasal congestion - Related Data Home Medications Medication Instructions Recorded Confirmed Vit No.180/Iron/Folic 1 tablet PO DAILY 10/23/20 01/24/21 [ Plus Tablet] Ferrous Sulfate [Feosol] 325 mg PO DAILY 12/24/20 01/24/21 Previous Rx's Medication Instructions Recorded HYDROcodone/APAP 5-325MG [[place] 1 tab PO Q4HR PRN #30 tab 01/26/21 5-325] Ibuprofen [Motrin] 600 mg PO Q6HR PRN #30 tab 01/26/21 Albuterol Inhaler [Ventolin Hfa 2 puff INHALATION Q4HR PRN #1 each 07/25/22 Inhaler] predniSONE 50 mg PO DAILY #3 tab 07/25/22 Allergies Allergy/AdvReac Type Severity Reaction Status Date / Time amoxicillin AdvReac Rash/Hives Verified 07/25/22 20:51 Review of Systems ROS Statement: Those systems with pertinent positive or pertinent negative responses have been documented in the HPI. ROS Other: All systems not noted in ROS Statement are negative. Past Medical History Past Medical History: No Reported History Additional Past Medical History / Comment(s): anemia History of Any Multi-Drug Resistant Organisms: None Reported Past Surgical History: Adenoidectomy, Section, Ear Surgery, Tonsillectomy Additional Past Surgical History / Comment(s): tubes in ears Past Anesthesia/Blood Transfusion Reactions: No Reported Reaction Past Psychological History: Depression Smoking Status: Never smoker Past Alcohol Use History: None Reported Past Drug Use History: None Reported - Past Family History Mother Family Medical History: No Reported History General Exam - General Exam Comments Initial Comments: Patient does not appear to be ill or toxic. No evidence of tachypnea or increased work of breathing. Limitations: no limitations General appearance: alert, in no apparent distress Head exam: Present: atraumatic, normocephalic, normal inspection Eye exam: Present: normal appearance, PERRL, EOMI. Absent: scleral icterus, conjunctival injection, periorbital swelling ENT exam: Present: normal exam, normal oropharynx, mucous membranes dry, mucous membranes moist, TM's normal bilaterally, normal external ear exam Neck exam: Present: normal inspection, full ROM. Absent: tenderness, meningismus, lymphadenopathy Respiratory exam: Present: wheezes (Expiratory wheezes bilaterally), chest wall tenderness, accessory muscle use. Absent: respiratory distress, rales, rhonchi, stridor Cardiovascular Exam: Present: regular rate, normal rhythm, normal heart sounds. Absent: systolic murmur, diastolic murmur, rubs, gallop, clicks GI/Abdominal exam: Present: soft, normal bowel sounds. Absent: distended, tenderness, guarding, rebound, rigid Extremities exam: Present: normal inspection, full ROM, normal capillary refill. Absent: tenderness, pedal edema, joint swelling, calf tenderness Back exam: Present: normal inspection Neurological exam: Present: alert, oriented X3, CN II-XII intact Psychiatric exam: Present: normal affect, normal mood Skin exam: Present: warm, dry, intact, normal color. Absent: rash Course Vital Signs 07/25/22 07/25/22 07/25/22 20:49 22:09 22:29 Temperature 98 F Pulse Rate 83 86 72 Respiratory 18 18 Rate Blood Pressure 92/56 112/56 O2 Sat by Pulse 95 98 Oximetry 07/25/22 07/25/22 22:39 22:59 Temperature Pulse Rate 75 Respiratory Rate Blood Pressure O2 Sat by Pulse 96 Oximetry - Reevaluation(s) Reevaluation #1: 07/25/22 23:25 Patient was reevaluated and still has some expiratory wheezes. 2+ of albuterol ordered. We'll send the patient home with a spacer. Patient no tachypnea. No respiratory distress. Says she feels better and feels well enough to go home. Medical Decision Making - Medical Decision Making Differential diagnosis: RSV, influenza, COVID-19, viral bronchitis with bronchospasm. Less likely bacterial pneumonia. We'll have labor and delivery assess heart tones. Patient states she had bronchitis during her last and had to be on an inhaler as well. Patient improved after breathing treatments here in the ER. I did consider a chest x-ray. However given the patient's and well appearance, lack of fever. This was deferred to shared decision-making. Discussed risks versus benefits of treatment with the patient. Patient voices understanding. We'll have the patient call her carbon paper coating machine setter in the morning to schedule a reevaluation. Albuterol inhaler for home. 3 days of prednisone. Did consider antibiotics. However the patient is afebrile. Does not appear to be ill or toxic. Suspect this is a viral illness. Antibiotics deferred. Shared decision-making. Patient was told to return to the ER for any signs or symptoms worsen. Told to return immediately if any other problems arise. All questions answered. Treatment plan discussed. Patient in agreement Every effort has been made to ensure accuracy of this dictation. However, due to the limitations of electronic medical records and dictation devices, errors in charting still occur. The case was discussed in detail with ED attending physician. Presentation, findings, treatment plan discussed in detail. Supervising physician Dr. Oshea - Lab Data Lab Results 07/25/22 Range/Units 20:53 Influenza Type A (PCR) Not Detected (Not Detectd) Influenza Type B (PCR) Not Detected (Not Detectd) RSV (PCR) Not Detected (Not Detectd) SARS-CoV-2 (PCR) Not Detected (Not Detectd) Disposition Clinical Impression: Acute bronchitis with bronchospasm Disposition: HOME SELF-CARE Condition: Stable Instructions (If sedation given, give patient instructions): Acute Bronchitis (ED), Bronchospasm (ED), How to Use a Metered-Dose Inhaler (ED) Additional Instructions: Albuterol 2 puffs every 4 hours as needed for wheezing. Prednisone as directed. Call the carbon paper coating machine setter at 8 AM in the morning to schedule reevaluation as soon as possible. Follow-up with your regular physician as directed. Return to the ER immediately if any symptoms worsen, new symptoms arise, or any other problems develop. Prescriptions: predniSONE 50 mg PO DAILY #3 tab Albuterol Inhaler [Ventolin Hfa Inhaler] 2 puff INHALATION Q4HR PRN #1 each PRN Reason: Wheezing Is patient prescribed a controlled substance at d/c from ED?: No Referrals: None,Stated [Primary Care Provider] - 1-2 days Time of Disposition: 23:28
[2022-07-25] MEDS ORDERED: ALBUTEROL HFA INHALER INHALATION STA (22:50)
[2022-07-25 23:36] VITALS: BP 105/52; PULSE 98
== END 2022-07-25 23:35 | disposition home or self-care (01) ==
LOC: EC 20:40
DX: O99.512 Diseases of the respiratory system complicating pregnancy, second trimester (principal); J20.9 Acute bronchitis, unspecified; O99.342 Other mental disorders complicating pregnancy, second trimester; F32.A Depression, unspecified; Z88.0 Allergy status to penicillin; Z3A.27 27 weeks gestation of pregnancy; Z20.822 Contact with and (suspected) exposure to COVID-19
CPT/HCPCS: 94640 ×2; 87636; 99285; J8540

== ENCOUNTER 2023-01-17 11:17 | Emergency (ER) | payer OTHER ==
[2023-01-17 11:29] VITALS: BP 112/77; PULSE 115; RESP 18; TEMP 98
[2023-01-17] MEDS ORDERED: ACET/COD 300 MG/30 MG STARTER PACK 6 TAB BTL PO STA (12:04)
--- NOTE | 2023-01-17 12:04 | ED ---
ENT HPI - General Chief complaint: Dental/Oral Stated complaint: dental pain Time Seen by Provider: 01/17/23 11:30 Source: patient, RN notes reviewed Mode of arrival: ambulatory Limitations: no limitations - History of Present Illness Initial comments: 27-year-old female presents emergency Department chief complaint dental pain. Patient states that she has recently scheduled appointment states that she's been having some on-and-off issues and was states that she was. Her tooth pulled but never have completely. Patient denies fevers chills no difficulty swallowing no other complaints. - Related Data Home Medications Medication Instructions Recorded Confirmed Vit No.180/Iron/Folic 1 tablet PO DAILY 10/23/20 09/18/22 [ Plus Tablet] Ferrous Sulfate [Feosol] 325 mg PO DAILY 12/24/20 09/18/22 Previous Rx's Medication Instructions Recorded Albuterol Inhaler [Ventolin Hfa 2 puff INHALATION Q4HR PRN #1 each 07/25/22 Inhaler] Ibuprofen [Motrin] 600 mg PO Q8HR PRN #20 tab 01/17/23 clindamycin HCL 300 mg PO QID #40 cap 01/17/23 Allergies Allergy/AdvReac Type Severity Reaction Status Date / Time amoxicillin AdvReac Rash/Hives Verified 01/17/23 11:29 Review of Systems ROS Statement: Those systems with pertinent positive or pertinent negative responses have been documented in the HPI. ROS Other: All systems not noted in ROS Statement are negative. Past Medical History Past Medical History: No Reported History Additional Past Medical History / Comment(s): anemia History of Any Multi-Drug Resistant Organisms: None Reported Past Surgical History: Adenoidectomy, Section, Ear Surgery, Tonsillectomy Additional Past Surgical History / Comment(s): tubes in ears Past Anesthesia/Blood Transfusion Reactions: No Reported Reaction Past Psychological History: Depression Smoking Status: Never smoker Past Alcohol Use History: None Reported Past Drug Use History: None Reported - Past Family History Mother Family Medical History: No Reported History General Exam Limitations: no limitations General appearance: alert, in no apparent distress Head exam: Present: atraumatic, normocephalic, normal inspection Eye exam: Present: normal appearance, PERRL, EOMI. Absent: scleral icterus, conjunctival injection, periorbital swelling ENT exam: Present: mucous membranes moist. Absent: normal exam, normal oropharynx (Impacted molar right lower, there is mild erythema, no drainable abscess.) Neck exam: Present: normal inspection, full ROM. Absent: tenderness, meningismus, lymphadenopathy Respiratory exam: Present: normal lung sounds bilaterally. Absent: respiratory distress, wheezes, rales, rhonchi, stridor Cardiovascular Exam: Present: regular rate, normal rhythm, normal heart sounds. Absent: systolic murmur, diastolic murmur, rubs, gallop, clicks Course Vital Signs 01/17/23 11:27 Temperature 98 F Pulse Rate 115 H Respiratory 18 Rate Blood Pressure 112/77 O2 Sat by Pulse 99 Oximetry Medical Decision Making - Medical Decision Making Was pt. sent in by a medical professional or institution (DIVYA Feliciano, EXECUTIVE COMPENSATION ANALYST, urgent care, hospital, or shelter...) When possible be specific @ -No Did you speak to anyone other than the patient for history (EMS, parent, family, police, friend...)? What history was obtained from this source @ -No Did you review nursing and triage notes (agree or disagree)? Why? @ -I reviewed and agree with nursing and triage notes Were old charts reviewed (outside hosp., previous admission, EMS record, old EKG, old radiological studies, urgent care reports/EKG's, shelter records)? Report findings @ -No old charts were reviewed Differential Diagnosis (chest pain, altered mental status, abdominal pain women, abdominal pain men, vaginal bleeding, weakness, fever, dyspnea, syncope, headache, dizziness, GI bleed, back pain, seizure, CVA, palpatations, mental health, musculoskeletal)? @ -Impacted molar, dental fracture, dental abscess, toothache EKG interpreted by me (3pts min.). @ -None X-rays interpreted by me (1pt min.). @ -None done CT interpreted by me (1pt min.). @ -None done U/S interpreted by me (1pt. min.). @ -None done What testing was considered but not performed or refused? (CT, X-rays, U/S, labs)? Why? @ -None What meds were considered but not given or refused? Why? @ -None Did you discuss the management of the patient with other professionals (professionals i.e. DIVYA Feliciano, EXECUTIVE COMPENSATION ANALYST, lab, RT, psych nurse, psychotherapist social worker, public health registrar, teacher, affirmative action officer, gearcase assembler)? Give summary @ -No Was smoking cessation discussed for >3mins.? @ -No Was critical care preformed (if so, how long)? @ -No Were there social determinants of health that impacted care today? How? (Homelessness, low income, unemployed, alcoholism, drug addiction, transportation, low edu. Level, literacy, decrease access to med. care, shelter, rehab)? @ -No Was there de-escalation of care discussed even if they declined (Discuss DNR or withdrawal of care, Hospice)? DNR status @ -No What co-morbidities impacted this encounter? (DM, HTN, Smoking, COPD, CAD, Cancer, CVA, ARF, Chemo, Hep., AIDS, mental health diagnosis, sleep apnea, morbid obesity)? @ -None Was patient admitted / discharged? Hospital course, mention meds given and route, prescriptions, significant lab abnormalities, going to OR and other pertinent info. @ -Discharge patient has impacted molar, there is some concern for underlying dental infection patient was started on clindamycin as she has a penicillin ALLERGY. Patient discharged with ibuprofen return parameters were discussed. Undiagnosed new problem with uncertain prognosis? @ -No Drug Therapy requiring intensive monitoring for toxicity (Heparin, Nitro, Insulin, Cardizem)? @ -No Were any procedures done? @ -No Diagnosis/symptom? @ -Impacted molar, dental infection Acute, or Chronic, or Acute on Chronic? @ -Acute Uncomplicated (without systemic symptoms) or Complicated (systemic symptoms)? @ -Uncomplicated Side effects of treatment? @ -No Exacerbation, Progression, or Severe Exacerbation? @ -No Poses a threat to life or bodily function? How? (Chest pain, [place], [place], pneumonia, PE, COPD, DKA, ARF, appy, cholecystitis, CVA, Diverticulitis, Homicidal, Suicidal, threat to staff... and all critical care pts) @ -No Disposition Clinical Impression: Impacted molar, Toothache Disposition: HOME SELF-CARE Condition: Stable Instructions (If sedation given, give patient instructions): Toothache (ED) Additional Instructions: Please return to the Emergency Department if symptoms worsen or any other concerns. Prescriptions: clindamycin HCL 300 mg PO QID #40 cap Ibuprofen [Motrin] 600 mg PO Q8HR PRN #20 tab PRN Reason: Pain Is patient prescribed a controlled substance at d/c from ED?: No Referrals: None,Stated [Primary Care Provider] - 1-2 days Time of Disposition: 12:04
== END 2023-01-17 12:12 | disposition home or self-care (01) ==
LOC: EC 11:17
DX: K01.1 Impacted teeth (principal); Z86.59 Personal history of other mental and behavioral disorders; Z88.0 Allergy status to penicillin
CPT/HCPCS: 99282

== ENCOUNTER 2023-07-03 21:22 | Emergency (ER) | payer OTHER ==
[2023-07-03] MEDS ORDERED: IPRATROPIUM-ALBUTEROL 3 ML NEB INHALATION STA (21:36)
[2023-07-03] MEDS ORDERED: AZITHROMYCIN 500 MG TAB PO STA (21:38)
[2023-07-03 21:42] VITALS: RESP 18; TEMP 98.7
[2023-07-03] MEDS ORDERED: CIPROFLOXACIN-DEXAMETH 0.3-0.1% DROPS 7.5 ML BTL RIGHT EAR ONE (21:45)
--- NOTE | 2023-07-03 22:05 | XR ---
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 FINDINGS: Lungs/Pleura: There is no evidence of pleural effusion, focal consolidation, or pneumothorax. Pulmonary vascularity: Unremarkable. Heart/mediastinum: Cardiomediastinal silhouette is unremarkable. Musculoskeletal: No acute osseous pathology. Other findings: None IMPRESSION: No acute cardiopulmonary disease/process.
--- NOTE | 2023-07-03 22:15 | ED ---
ENT HPI - General Chief complaint: ENT Stated complaint: Cough,Ear Infection Time Seen by Provider: 07/03/23 21:31 Source: patient, RN notes reviewed Mode of arrival: ambulatory Limitations: no limitations - History of Present Illness Initial comments: This is a 28-year-old female who presents to the emergency department for right ear pain and a cough. States that she's had a cough for 3 weeks. Reports minor associated shortness of breath. Denies any chest pain. She has no history of asthma or other respiratory illnesses. Additionally, states that when she woke up yesterday her right ear was throbbing and she started to notice drainage coming from the ear. Reports a history of ear infections when she was younger and states that this feels the same. Denies any fevers or chills. Also denies any sick contacts. MD complaint: ear pain - Related Data Home Medications Medication Instructions Recorded Confirmed Vit No.180/Iron/Folic 1 tablet PO DAILY 10/23/20 09/18/22 [ Plus Tablet] Ferrous Sulfate [Feosol] 325 mg PO DAILY 12/24/20 09/18/22 Previous Rx's Medication Instructions Recorded Albuterol Inhaler [Ventolin Hfa 2 puff INHALATION Q4HR PRN #1 each 07/25/22 Inhaler] Ibuprofen [Motrin] 600 mg PO Q8HR PRN #20 tab 01/17/23 clindamycin HCL 300 mg PO QID #40 cap 01/17/23 Azithromycin [Zithromax] 250 mg PO DIRECTED 5 Days #6 tab 07/03/23 Promethazine/Dextromethorphan 5 ml PO Q4-6H PRN #473 ml 07/03/23 [Promethazine-Dm Syrup] predniSONE 50 mg PO DAILY 5 Days #5 tab 07/03/23 Allergies Allergy/AdvReac Type Severity Reaction Status Date / Time amoxicillin AdvReac Rash/Hives Verified 01/17/23 11:29 Review of Systems ROS Statement: Those systems with pertinent positive or pertinent negative responses have been documented in the HPI. ROS Other: All systems not noted in ROS Statement are negative. Past Medical History Past Medical History: No Reported History Additional Past Medical History / Comment(s): anemia History of Any Multi-Drug Resistant Organisms: None Reported Past Surgical History: Adenoidectomy, Section, Ear Surgery, Tonsillectomy Additional Past Surgical History / Comment(s): tubes in ears Past Anesthesia/Blood Transfusion Reactions: No Reported Reaction Past Psychological History: Depression Smoking Status: Never smoker Past Alcohol Use History: None Reported Past Drug Use History: None Reported - Past Family History Mother Family Medical History: No Reported History General Exam Limitations: no limitations General appearance: alert, in no apparent distress Head exam: Present: atraumatic, normocephalic, normal inspection ENT exam: Present: other (Right TM bulging and erythema with canal erythema as well.) Respiratory exam: Present: normal lung sounds bilaterally. Absent: respiratory distress, wheezes, rales, rhonchi, stridor Cardiovascular Exam: Present: regular rate, normal rhythm, normal heart sounds. Absent: systolic murmur, diastolic murmur, rubs, gallop, clicks Neurological exam: Present: alert, oriented X3, CN II-XII intact Psychiatric exam: Present: normal affect, normal mood Skin exam: Present: warm, dry, intact, normal color. Absent: rash Course Vital Signs 07/03/23 07/03/23 07/03/23 21:26 22:26 22:33 Temperature 98.7 F Pulse Rate 88 88 89 Respiratory 18 Rate Blood Pressure 111/78 O2 Sat by Pulse 99 Oximetry 07/03/23 23:11 Temperature Pulse Rate 92 Respiratory 18 Rate Blood Pressure 94/62 O2 Sat by Pulse 95 Oximetry Medical Decision Making - Medical Decision Making This is a 28-year-old female who presents to the emergency department for right ear pain and coughing. Was pt. sent in by a medical professional or institution? @ -No Did you speak to anyone other than the patient for history? @ -No Did you review nursing and triage notes? @ -Yes, and I agree, it is accurate with regards to the patient's symptoms. Were old charts reviewed? @ -No Differential Diagnosis? @ -Differential Ear Pain: Otitis media, otitis externa, eustachian tube dysfunction, allergic rhinitis, barotrauma, bullous myringitis, this is not meant to be an all-inclusive list. EKG interpreted by me (3pts min.)? @ -Not obtained X-rays interpreted by me (1pt min.)? @ -Chest x-ray obtained, my interpretation identifies no localized consolidations or infiltrates. CT interpreted by me (1pt min.)? @ -Not obtained U/S interpreted by me (1pt. min.)? @ -Not obtained What testing was considered but not performed? (CT, X-rays, U/S, labs)? Why? @ -None What meds were considered but not given? Why? @ -None Did you discuss the management of the patient with other professionals? @ -No Did you reconcile home meds? @ -No Was smoking cessation discussed for >3mins.? @ -No Was critical care preformed (if so, how long)? @ -No Were there social determinants of health that impacted care today? How? (Homelessness, low income, unemployed, alcoholism, drug addiction, transportation, low edu. Level, literacy, decrease access to med. care, nursing home, rehab)? @ -No Was there de-escalation of care discussed even if they declined? (Discuss DNR or withdrawal of care, Hospice)? @ -No What co-morbidities impacted this encounter? (DM, HTN, Smoking, COPD, CAD, Cancer, CVA, Hep., AIDS, mental health diagnosis, sleep apnea, morbid obesity)? @ -None Was patient admitted / discharged? @ -Discharged. Covid, influenza, and RSV testing were negative. Chest x-ray reveals no acute process. Physical examination was consistent with a right otitis media and otitis externa. She was given a bottle of Ciprodex drops and an initial dose of azithromycin in the emergency department. DuoNeb breathing treatment administered as well, which she felt was beneficial. Prescription for azithromycin, promethazine DM cough syrup, and five-day course of prednisone provided with dosing instructions reviewed. She will continue to use the Ciprodex drops provided as well and follow up with her primary care provider for reevaluation. Undiagnosed new problem with uncertain prognosis? @ -None Drug Therapy requiring intensive monitoring for toxicity (Heparin, Nitro, Insulin, Cardizem)? @ -None Were any procedures done? @ -None Diagnosis/symptom? @ -Right otitis media, otitis externa, bronchitis Acute, or Chronic, or Acute on Chronic? @ -Acute Uncomplicated (without systemic symptoms) or Complicated (systemic symptoms)? @ -Uncomplicated Side effects of treatment? @ -None Exacerbation, Progression, or Severe Exacerbation] @ -Not applicable Poses a threat to life or bodily function? @ -No Return precautions reviewed in depth, the patient is instructed to return to the emergency department with any new, worsening, or concerning symptoms. Patient verbalized understanding. This case was discussed in detail with the attending ED physician, Dr. Swan. Presentation, findings, and treatment plan discussed in detail as well. - Lab Data Lab Results 07/03/23 Range/Units 21:39 Influenza Type A (PCR) Not Detected (Not Detectd) Influenza Type B (PCR) Not Detected (Not Detectd) RSV (PCR) Not Detected (Not Detectd) SARS-CoV-2 (PCR) Not Detected (Not Detectd) - Radiology Data Radiology results: report reviewed, image reviewed Disposition Clinical Impression: Right otitis media, Right otitis externa, Bronchitis Disposition: HOME SELF-CARE Instructions (If sedation given, give patient instructions): Swimmer's Ear (ED), Ear Infection (ED), Acute Bronchitis (ED) Additional Instructions: Return to the emergency department with any new, worsening, or concerning symptoms. Take the antibiotic as prescribed for 5 days. Take the prednisone daily for 5 days. Apply the eardrops as 4 drops to the right ear twice daily for 7 days. You can take the cough medication every 4-6 hours as needed. Follow up with your primary care provider in 1-2 days. Prescriptions: predniSONE 50 mg PO DAILY 5 Days #5 tab Promethazine/Dextromethorphan [Promethazine-Dm Syrup] 5 ml PO Q4-6H PRN #473 ml PRN Reason: Cough Azithromycin [Zithromax] 250 mg PO DIRECTED 5 Days #6 tab Is patient prescribed a controlled substance at d/c from ED?: No Referrals: None,Stated [Primary Care Provider] - 1-2 days
[2023-07-03 23:23] VITALS: BP 94/62; PULSE 92
== END 2023-07-03 23:11 | disposition home or self-care (01) ==
LOC: EC 21:22
DX: J40 Bronchitis, not specified as acute or chronic (principal); H60.91 Unspecified otitis externa, right ear; H66.91 Otitis media, unspecified, right ear; Z20.822 Contact with and (suspected) exposure to COVID-19; Z88.0 Allergy status to penicillin; Z86.59 Personal history of other mental and behavioral disorders
CPT/HCPCS: 71046; 87636; 94640; 99283

== ENCOUNTER 2024-02-11 09:55 | Emergency (ER) | payer OTHER ==
[2024-02-11 10:09] VITALS: RESP 18
--- NOTE | 2024-02-11 10:40 | ED ---
Lower Extremity Injury HPI - General Chief Complaint: Extremity Injury, Lower Stated Complaint: R Ankle Injury Time Seen by Provider: 02/11/24 10:10 Source: patient, RN notes reviewed Mode of arrival: ambulatory Limitations: no limitations - History of Present Illness Initial Comments: 28-year-old female presenting with right ankle injury last night. States she had a mechanical fall in her kitchen last night, where she twisted her right ankle. Denies other injuries, denies head injury or losing consciousness. States she has been able to bear weight but admits pain with weightbearing. States she feels like her foot is tingly. She states she has a history of a right ankle fracture many years ago. - Related Data Home Medications Medication Instructions Recorded Confirmed Vit No.180/Iron/Folic 1 tablet PO DAILY 10/23/20 09/18/22 [ Plus Tablet] Ferrous Sulfate [Feosol] 325 mg PO DAILY 12/24/20 09/18/22 Previous Rx's Medication Instructions Recorded Albuterol Inhaler [Ventolin Hfa 2 puff INHALATION Q4HR PRN #1 each 07/25/22 Inhaler] Ibuprofen [Motrin] 600 mg PO Q8HR PRN #20 tab 01/17/23 clindamycin HCL 300 mg PO QID #40 cap 01/17/23 Azithromycin [Zithromax] 250 mg PO DIRECTED 5 Days #6 tab 07/03/23 Promethazine/Dextromethorphan 5 ml PO Q4-6H PRN #473 ml 07/03/23 [Promethazine-Dm Syrup] predniSONE 50 mg PO DAILY 5 Days #5 tab 07/03/23 Allergies Allergy/AdvReac Type Severity Reaction Status Date / Time amoxicillin AdvReac Rash/Hives Verified 02/11/24 10:09 Review of Systems ROS Statement: Those systems with pertinent positive or pertinent negative responses have been documented in the HPI. ROS Other: All systems not noted in ROS Statement are negative. Past Medical History Past Medical History: No Reported History Additional Past Medical History / Comment(s): anemia History of Any Multi-Drug Resistant Organisms: None Reported Past Surgical History: Adenoidectomy, Section, Ear Surgery, Tonsillectomy Additional Past Surgical History / Comment(s): tubes in ears Past Anesthesia/Blood Transfusion Reactions: No Reported Reaction Past Psychological History: Depression Smoking Status: Never smoker Past Alcohol Use History: None Reported Past Drug Use History: None Reported - Past Family History Mother Family Medical History: No Reported History General Exam Limitations: no limitations General appearance: alert, in no apparent distress Head exam: Present: atraumatic, normocephalic, normal inspection Right Knee exam: Present: normal inspection, full ROM. Absent: tenderness, swelling Lower Leg exam: Present: normal inspection, full ROM. Absent: tenderness, swelling Ankle exam: Present: normal inspection, full ROM (Pain with flexion and extension), tenderness (Mild tenderness over anterior aspect of right ankle). Absent: swelling Foot/Toe exam: Present: normal inspection, full ROM. Absent: tenderness, swelling Neurovascular tendon exam: Present: no vascular compromise. Absent: pulse deficit, abnormal cap refill, sensory deficit Course Vital Signs 02/11/24 10:07 Temperature 98.5 F Pulse Rate 64 Respiratory 18 Rate Blood Pressure 116/61 O2 Sat by Pulse 97 Oximetry Procedures - Orthopedic Splinting/Casting Injury #1 Side: right Lower Extremity Injury Location: ankle Lower Extremity Immobilizer: stirrup splint Additional Comments: Neurovascularly intact status post splint. Medical Decision Making - Medical Decision Making Was pt. sent in by a medical professional or institution (, PA, [employer], urgent care, hospital, or detention...) When possible be specific @ -No Did you speak to anyone other than the patient for history (EMS, parent, family, police, friend...)? What history was obtained from this source @ -No Did you review nursing and triage notes (agree or disagree)? Why? @ -I reviewed and agree with nursing and triage notes Were old charts reviewed (outside hosp., previous admission, EMS record, old EKG, old radiological studies, urgent care reports/EKG's, detention records)? Report findings @ -No old charts were reviewed Differential Diagnosis (chest pain, altered mental status, abdominal pain women, abdominal pain men, vaginal bleeding, weakness, fever, dyspnea, syncope, headache, dizziness, GI bleed, back pain, seizure, CVA, palpatations, mental health, musculoskeletal)? @ -Differential Musculoskeletal Muscular strain, contusion, ligament sprain, fracture, arthritis, septic arthritis, bursitis, cellulitis, muscle spasm, nerve compression, DVT, arterial occlusion, herpes zoster, electrolyte abnormality, tumor.... This is not meant to be in all inclusive list EKG interpreted by me (3pts min.). @ -None X-rays interpreted by me (1pt min.). @ -X-ray revealed projectional artifact versus subtle 2 mm osteochondral injury medial talar dome, otherwise no acute osseous abnormality CT interpreted by me (1pt min.). @ -None done U/S interpreted by me (1pt. min.). @ -None done What testing was considered but not performed or refused? (CT, X-rays, U/S, labs)? Why? @ -None What meds were considered but not given or refused? Why? @ -None Did you discuss the management of the patient with other professionals (professionals i.e. , PA, [employer], lab, RT, psych nurse, licensed master social worker, web worker, teacher, medical officer psychiatry, case making machine operator)? Give summary @ -No Was smoking cessation discussed for >3mins.? @ -No Was critical care preformed (if so, how long)? @ -No Were there social determinants of health that impacted care today? How? (Homelessness, low income, unemployed, alcoholism, drug addiction, transportation, low edu. Level, literacy, decrease access to med. care, correction, rehab)? @ -No Was there de-escalation of care discussed even if they declined (Discuss DNR or withdrawal of care, Hospice)? DNR status @ -No What co-morbidities impacted this encounter? (DM, HTN, Smoking, COPD, CAD, Cancer, CVA, ARF, Chemo, Hep., AIDS, mental health diagnosis, sleep apnea, morbid obesity)? @ -None Was patient admitted / discharged? Hospital course, mention meds given and route, prescriptions, significant lab abnormalities, going to OR and other pertinent info. @ -Patient was discharged. Patient was seen and evaluated for right ankle inj ury status post mechanical fall last night. Patient is neurovascularly intact. Patient is able to weight-bear but admits pain. X-ray revealed subtle 2 mm osteochondral injury medial talar dome. Stirrup splint was performed. Patient is neurovascularly intact status post splint. Diagnosis of osteochondral injury of medial talus discussed with patient. Supportive care discussed. Given orthopedic referral for follow-up. Strict return/alarm symptoms discussed with patient and she shows understanding and agrees to plan. Case discussed with my attending Dr. Beckham. Patient discharged in stable condition. Undiagnosed new problem with uncertain prognosis? @ -No Drug Therapy requiring intensive monitoring for toxicity (Heparin, Nitro, Insulin, Cardizem)? @ -No Were any procedures done? @ -Stirrup splint placed on right ankle Diagnosis/symptom? @ -Right osteochondral injury of talus Acute, or Chronic, or Acute on Chronic? @ -Acute Uncomplicated (without systemic symptoms) or Complicated (systemic symptoms)? @ -Uncomplicated Side effects of treatment? @ -No Exacerbation, Progression, or Severe Exacerbation? @ -No Poses a threat to life or bodily function? How? (Chest pain, [place], [place], pneumonia, PE, COPD, DKA, ARF, appy, cholecystitis, CVA, Diverticulitis, Homicidal, Suicidal, threat to staff... and all critical care pts) @ -Low likelihood Disposition Clinical Impression: Osteochondral defect of talus Disposition: HOME SELF-CARE Instructions (If sedation given, give patient instructions): Ankle Sprain (ED) Additional Instructions: Please follow-up with Ortho. Take Tylenol or ibuprofen as needed for pain. Keep right foot elevated. Please return to the Emergency Department if symptoms worsen or any other concerns. Is patient prescribed a controlled substance at d/c from ED?: No Referrals: None,Stated [Primary Care Provider] - 1-2 days Luciana Cloe DO [Doctor of Osteopathic Medicine] - 1-2 days Time of Disposition: 12:26
[2024-02-11] MEDS: IBUPROFEN 400 MG TAB PO STA (10:41)
--- NOTE | 2024-02-11 11:23 | XR ---
EXAMINATION TYPE: XR ankle complete RT DATE OF EXAM: 02/11/2024 COMPARISON: NONE HISTORY: 28-year-old female twisted right ankle today, pain TECHNIQUE: 3 views FINDINGS: Ankle mortise is congruent with preservation of the distal tibiofibular overlap. Either pro jectional artifact very subtle osteochondral defect at the medial talar dome on the mortise view. Sub talar joint align. No acute fracture, subluxation, or dislocation. IMPRESSION: Either projectional artifact versus a subtle 2 mm osteochondral injury medial talar dome. If symptoms persist, MRI can further evaluate. Otherwise, no acute osseous abnormality seen.
[2024-02-11 12:42] VITALS: BP 116/74; PULSE 68; TEMP 97.9
== END 2024-02-11 12:42 | disposition home or self-care (01) ==
LOC: EC 09:55
DX: S99.911A Unspecified injury of right ankle, initial encounter (principal); M21.961 Unspecified acquired deformity of right lower leg; Z88.0 Allergy status to penicillin; W19.XXXA Unspecified fall, initial encounter; X50.1XXA Overexertion from prolonged static or awkward postures, initial encounter
CPT/HCPCS: 29515; 99283

== ENCOUNTER 2024-03-10 12:15 | Emergency (ER) | payer OTHER ==
[2024-03-10 12:36] VITALS: RESP 16; TEMP 97.8
[2024-03-10] MEDS: SODIUM CHLORIDE 0.9% 1,000 ML IV STA (13:22)
[2024-03-10] MEDS: KETOROLAC 15 MG/ML 1 ML VIAL IVP STA (13:23)
[2024-03-10] MEDS: DEXAMETHASONE SOD PHOSPHATE 10 MG/ML 1 ML VIAL IVP STA (13:23)
[2024-03-10] MEDS: diphenhydrAMINE 50 MG/ML 1 ML VIAL IVP STA (13:23)
[2024-03-10] MEDS: MAGNESIUM SULFATE-D5W PMX 1 GM in DEXTROSE/WATER 1 100ML.BAG IVPB ONE (13:24)
[2024-03-10] MEDS: METOCLOPRAMIDE 5 MG/ML 2 ML VIAL IVP STA (13:24)
[2024-03-10 13:28] LABS: Appearance,Urine Clear (Clear); Bilirubin,Urine Negative (Negative); Blood,Urine Negative (Negative); Color,Urine Yellow; Glucose,Urine (UA) Negative (Negative); Ketones,Urine Negative (Negative); Leukocyte Esterase,Urine Negative (Negative); Nitrite,Urine Negative (Negative); PH, Urine 6.5 (5.0-8.0); Protein,Urine Trace (Negative); Specific Gravity,Urine 1.027 (1.001-1.035); Urobilinogen,Urine <2.0 mg/dL (<2.0)
[2024-03-10 13:30] LABS: HCT 37.2 % (34.0-46.0); HGB 12.3 gm/dL (11.4-16.0); MCH 29.2 pg (25.0-35.0); MCV 88.4 fL (80.0-100.0); Mean Platelet Volume 10.2; Platelet Count 177 k/uL (150-450); RBC 4.21 m/uL (3.80-5.40); WBC 3.6 k/uL (3.8-10.6)
[2024-03-10 13:38] LABS: ALT 24 U/L (4-34); AST 28 U/L (14-36); African American GFR (CKD) >90 (>60 ml/min/1.73 sqM); Albumin 4.1 g/dL (3.5-5.0); Alkaline Phosphatase 64 U/L (38-126); Anion Gap 7 mmol/L; Blood Urea Nitrogen 12 mg/dL (7-17); Calcium 8.7 mg/dL (8.4-10.2); Carbon Dioxide 26 mmol/L (22-30); Chloride 107 mmol/L (98-107); Glucose 86 mg/dL (74-99); Non-African American GFR(CKD) >90 (>60 ml/min/1.73 sqM); Potassium 3.8 mmol/L (3.5-5.1); Sodium 140 mmol/L (137-145); Total Bilirubin 0.4 mg/dL (0.2-1.3); Total Protein 6.6 g/dL (6.3-8.2)
--- NOTE | 2024-03-10 13:52 | CT ---
EXAMINATION TYPE: CT brain wo con DATE OF EXAM: 03/10/2024 COMPARISON: None HISTORY: 29-year-old female Headache, intermittent x 2 weeks TECHNIQUE: Examination was done in axial plane without intravenous contrast. Coronal and sagittal r econstructions performed. CT DLP: 1066.6 mGycm Automated exposure control for dose reduction was used. FINDINGS: There is no evidence of acute intracranial hemorrhage, acute ischemic changes, mass, mass-effect, or extra-axial fluid collection. There is no effacement of cerebral sulci or basal subarachnoid cister ns. There is no hydrocephalus. There is no midline shift. Benites-white matter distinction is preserv ed. Scattered mild mucosal thickening maxillary sinuses and ethmoid air cells. Slight leftward nasal sept al deviation. Orbits and globes are intact. Mastoid air cells are well pneumatized. Left-sided nose r ing. IMPRESSION: No acute intracranial abnormality seen. Mild chronic maxillary and ethmoid sinus disease.
[2024-03-10 14:28] LABS: Band Neutrophils % 5 %; Eosinophils # (M) 0.07 k/uL (0-0.7); Lymphocytes # (M) 0.72 k/uL (1.0-4.8); Monocytes # (M) 0.25 k/uL (0-1.0); Neutrophils % (M) 66 %; Nucleated Red Blood Cells 0 /100 WBC (0-0); Total Cells Counted 100
[2024-03-10 14:29] LABS: RBC Morphology Normal
--- NOTE | 2024-03-10 15:55 | ED ---
Headache HPI - General Chief Complaint: Headache Stated Complaint: Headache Time Seen by Provider: 03/10/24 12:20 Mode of arrival: EMS - History of Present Illness Initial Comments: 29-year-old female presents to the emergency department for a headache. States has been going on for the past 5 days and she cannot shake it. States that she feels lightheaded. She has not had much to eat or drink due to the headache. She has been taking Motrin and Tylenol for the pain however it has not helped. She saw her primary care who recommended that she have a CT of her brain performed and therefore referred her to the hospital. She denies concern for . No neck stiffness. No fevers. No head trauma. She denies a history of headaches. No other alleviating, precipitating or modifying factors - Related Data Home Medications Medication Instructions Recorded Confirmed Vit No.180/Iron/Folic 1 tablet PO DAILY 10/23/20 09/18/22 [ Plus Tablet] Ferrous Sulfate [Feosol] 325 mg PO DAILY 12/24/20 09/18/22 Previous Rx's Medication Instructions Recorded Albuterol Inhaler [Ventolin Hfa 2 puff INHALATION Q4HR PRN #1 each 07/25/22 Inhaler] Ibuprofen [Motrin] 600 mg PO Q8HR PRN #20 tab 01/17/23 clindamycin HCL 300 mg PO QID #40 cap 01/17/23 Azithromycin [Zithromax] 250 mg PO DIRECTED 5 Days #6 tab 07/03/23 Promethazine/Dextromethorphan 5 ml PO Q4-6H PRN #473 ml 07/03/23 [Promethazine-Dm Syrup] predniSONE 50 mg PO DAILY 5 Days #5 tab 07/03/23 Fluticasone Nasal [place] [Flonase 2 spr EA NOSTRIL DAILY #16 gm 03/10/24 Nasal [place]] Loratadine [Claritin] 10 mg PO DAILY #30 tablet 03/10/24 Allergies Allergy/AdvReac Type Severity Reaction Status Date / Time amoxicillin AdvReac Rash/Hives Verified 03/10/24 12:21 Review of Systems ROS Statement: Those systems with pertinent positive or pertinent negative responses have been documented in the HPI. ROS Other: All systems not noted in ROS Statement are negative. Past Medical History Past Medical History: No Reported History Additional Past Medical History / Comment(s): anemia History of Any Multi-Drug Resistant Organisms: None Reported Past Surgical History: Adenoidectomy, Section, Ear Surgery, Tonsillectomy Additional Past Surgical History / Comment(s): tubes in ears Past Anesthesia/Blood Transfusion Reactions: No Reported Reaction Past Psychological History: Depression Smoking Status: Never smoker Past Alcohol Use History: None Reported Past Drug Use History: None Reported - Past Family History Mother Family Medical History: No Reported History General Exam General appearance: alert, in no apparent distress Head exam: Present: atraumatic, normocephalic, normal inspection Eye exam: Present: normal appearance, PERRL, EOMI. Absent: scleral icterus, conjunctival injection, periorbital swelling ENT exam: Present: normal exam, mucous membranes moist Neck exam: Present: normal inspection. Absent: tenderness, meningismus, lymphadenopathy Respiratory exam: Present: normal lung sounds bilaterally. Absent: respiratory distress, wheezes, rales, rhonchi, stridor Cardiovascular Exam: Present: regular rate, normal rhythm, normal heart sounds. Absent: systolic murmur, diastolic murmur, rubs, gallop, clicks GI/Abdominal exam: Present: soft, normal bowel sounds. Absent: distended, tenderness, guarding, rebound, rigid Extremities exam: Present: normal inspection, full ROM, normal capillary refill. Absent: tenderness, pedal edema, joint swelling, calf tenderness Back exam: Present: normal inspection Neurological exam: Present: alert, oriented X3, CN II-XII intact Psychiatric exam: Present: normal affect, normal mood Skin exam: Present: warm, dry, intact, normal color. Absent: rash Course Vital Signs 03/10/24 03/10/24 12:17 16:17 Temperature 97.8 F Pulse Rate 70 66 Respiratory 16 16 Rate Blood Pressure 101/68 97/66 O2 Sat by Pulse 99 99 Oximetry Medical Decision Making - Medical Decision Making Was pt. sent in by a medical professional or institution (, PA, ELECTRICAL CONTROLS ENGINEER, urgent care, hospital, or long-term...) When possible be specific @ -Patient was sent in by her primary care for a CAT scan Did you speak to anyone other than the patient for history (EMS, parent, family, police, friend...)? What history was obtained from this source @ -No Did you review nursing and triage notes (agree or disagree)? Why? @ -I reviewed and agree with nursing and triage notes Were old charts reviewed (outside hosp., previous admission, EMS record, old EKG, old radiological studies, urgent care reports/EKG's, long-term records)? Report findings @ -No old charts were reviewed Differential Diagnosis (chest pain, altered mental status, abdominal pain women, abdominal pain men, vaginal bleeding, weakness, fever, dyspnea, syncope, headache, dizziness, GI bleed, back pain, seizure, CVA, palpatations, mental health, musculoskeletal)? @ -Differential Headache: Migraine, tension, cluster, carbon monoxide, central venous thrombosis, pension karma temporal arteritis, acute closure glaucoma, intercranial hemorrhage, mastoiditis, sinusitis, head injury, this is not meant to be an all-inclusive list. EKG interpreted by me (3pts min.). @ -Not done X-rays interpreted by me (1pt min.). @ -None done CT interpreted by me (1pt min.). @ -Yes and demonstrates sinusitis U/S interpreted by me (1pt. min.). @ -None done What testing was considered but not performed or refused? (CT, X-rays, U/S, labs)? Why? @ -None What meds were considered but not given or refused? Why? @ -None Did you discuss the management of the patient with other professionals (professionals i.e. , PA, ELECTRICAL CONTROLS ENGINEER, lab, RT, psych nurse, social media marketing manager, gas welder, teacher, loan service officer, pillowcase folder)? Give summary @ -No Was smoking cessation discussed for >3mins.? @ -No Was critical care preformed (if so, how long)? @ -No Were there social determinants of health that impacted care today? How? (Homelessness, low income, unemployed, alcoholism, drug addiction, transportation, low edu. Level, literacy, decrease access to med. care, long-term, rehab)? @ -No Was there de-escalation of care discussed even if they declined (Discuss DNR or withdrawal of care, Hospice)? DNR status @ -No What co-morbidities impacted this encounter? (DM, HTN, Smoking, COPD, CAD, Cancer, CVA, ARF, Chemo, Hep., AIDS, mental health diagnosis, sleep apnea, morbid obesity)? @ -None Was patient admitted / discharged? Hospital course, mention meds given and route, prescriptions, significant lab abnormalities, going to OR and other pe rtinent info. @ -Upon arrival patient seen and evaluated in hallway 21. Thorough history and physical exam was performed. IV access was established. Patient was given headache cocktail. CT is performed as this is the reason why the patient was sent to the emergency department. CT demonstrates sinusitis. I did discuss treatment options for the headache. Patient will be discharged home and is instructed to follow back up with her primary care doctor for further management. Return for any new or worsening symptoms. Patient agreeable plan was discharged in stable condition Undiagnosed new problem with uncertain prognosis? @ -No Drug Therapy requiring intensive monitoring for toxicity (Heparin, Nitro, Insulin, Cardizem)? @ -No Were any procedures done? @ -No Diagnosis/symptom? @ -Acute cephalgia Acute, or Chronic, or Acute on Chronic? @ -Acute Uncomplicated (without systemic symptoms) or Complicated (systemic symptoms)? @ -Complicated Side effects of treatment? @ -No Exacerbation, Progression, or Severe Exacerbation? @ -No Poses a threat to life or bodily function? How? (Chest pain, USA, MS, pneumonia, PE, COPD, DKA, ARF, appy, cholecystitis, CVA, Diverticulitis, Homicidal, Suicidal, threat to staff... and all critical care pts) @ -No - Lab Data Result diagrams: 03/10/24 12:59 03/10/24 12:59 Lab Results 03/10/24 03/10/24 03/10/24 Range/Units 12:59 12:59 12:59 WBC 3.6 L (3.8-10.6) k/uL RBC 4.21 (3.80-5.40) m/uL Hgb 12.3 (11.4-16.0) gm/dL Hct 37.2 (34.0-46.0) % MCV 88.4 (80.0-100.0) fL MCH 29.2 (25.0-35.0) pg MCHC 33.0 (31.0-37.0) g/dL RDW 14.0 (11.5-15.5) % Plt Count 177 (150-450) k/uL MPV 10.2 Neutrophils % (Manual) 66 % Band Neuts % (Manual) 5 % Lymphocytes % (Manual) 20 % Monocytes % (Manual) 7 % Eosinophils % (Manual) 2 % Neutrophils # (Manual) 2.50 (1.3-7.7) k/uL Lymphocytes # (Manual) 0.72 L (1.0-4.8) k/uL Monocytes # (Manual) 0.25 (0-1.0) k/uL Eosinophils # (Manual) 0.07 (0-0.7) k/uL Nucleated RBCs 0 (0-0) /100 WBC Manual Slide Review Performed RBC Morphology Normal Sodium (137-145) mmol/L Potassium (3.5-5.1) mmol/L Chloride (98-107) mmol/L Carbon Dioxide (22-30) mmol/L Anion Gap mmol/L BUN (7-17) mg/dL Creatinine (0.52-1.04) mg/dL Est GFR (CKD-EPI)AfAm (>60 ml/min/1.73 sqM) Est GFR (CKD-EPI)NonAf (>60 ml/min/1.73 sqM) Glucose (74-99) mg/dL Calcium (8.4-10.2) mg/dL Total Bilirubin (0.2-1.3) mg/dL AST (14-36) U/L ALT (4-34) U/L Alkaline Phosphatase (38-126) U/L Total Protein (6.3-8.2) g/dL Albumin (3.5-5.0) g/dL Urine Color Yellow Urine Appearance Clear (Clear) Urine pH 6.5 (5.0-8.0) Ur Specific [place] 1.027 (1.001-1.035) Urine Protein Trace H (Negative) Urine Glucose (UA) Negative (Negative) Urine Ketones Negative (Negative) Urine Blood Negative (Negative) Urine Nitrite Negative (Negative) Urine Bilirubin Negative (Negative) Urine Urobilinogen <2.0 (<2.0) mg/dL Ur Leukocyte Esterase Negative (Negative) Urine HCG, Qual Not Detected (Not Detectd) Influenza Type A (PCR) (Not Detectd) Influenza Type B (PCR) (Not Detectd) RSV (PCR) (Not Detectd) SARS-CoV-2 (PCR) (Not Detectd) 03/10/24 03/10/24 Range/Units 12:59 12:59 WBC (3.8-10.6) k/uL RBC (3.80-5.40) m/uL Hgb (11.4-16.0) gm/dL Hct (34.0-46.0) % MCV (80.0-100.0) fL MCH (25.0-35.0) pg MCHC (31.0-37.0) g/dL RDW (11.5-15.5) % Plt Count (150-450) k/uL MPV Neutrophils % (Manual) % Band Neuts % (Manual) % Lymphocytes % (Manual) % Monocytes % (Manual) % Eosinophils % (Manual) % Neutrophils # (Manual) (1.3-7.7) k/uL Lymphocytes # (Manual) (1.0-4.8) k/uL Monocytes # (Manual) (0-1.0) k/uL Eosinophils # (Manual) (0-0.7) k/uL Nucleated RBCs (0-0) /100 WBC Manual Slide Review RBC Morphology Sodium 140 (137-145) mmol/L Potassium 3.8 (3.5-5.1) mmol/L Chloride 107 (98-107) mmol/L Carbon Dioxide 26 (22-30) mmol/L Anion Gap 7 mmol/L BUN 12 (7-17) mg/dL Creatinine 0.71 (0.52-1.04) mg/dL Est GFR (CKD-EPI)AfAm >90 (>60 ml/min/1.73 sqM) Est GFR (CKD-EPI)NonAf >90 (>60 ml/min/1.73 sqM) Glucose 86 (74-99) mg/dL Calcium 8.7 (8.4-10.2) mg/dL Total Bilirubin 0.4 (0.2-1.3) mg/dL AST 28 (14-36) U/L ALT 24 (4-34) U/L Alkaline Phosphatase 64 (38-126) U/L Total Protein 6.6 (6.3-8.2) g/dL Albumin 4.1 (3.5-5.0) g/dL Urine Color Urine Appearance (Clear) Urine pH (5.0-8.0) Ur Specific [place] (1.001-1.035) Urine Protein (Negative) Urine Glucose (UA) (Negative) Urine Ketones (Negative) Urine Blood (Negative) Urine Nitrite (Negative) Urine Bilirubin (Negative) Urine Urobilinogen (<2.0) mg/dL Ur Leukocyte Esterase (Negative) Urine HCG, Qual (Not Detectd) Influenza Type A (PCR) Not Detected (Not Detectd) Influenza Type B (PCR) Not Detected (Not Detectd) RSV (PCR) Not Detected (Not Detectd) SARS-CoV-2 (PCR) Not Detected (Not Detectd) Disposition Clinical Impression: Headache, Sinusitis Disposition: HOME SELF-CARE Condition: Stable Instructions (If sedation given, give patient instructions): Acute Headache (ED) Additional Instructions: Please take the medications as prescribed. Follow-up with your doctor and return for any new or worsening symptoms Prescriptions: Loratadine [Claritin] 10 mg PO DAILY #30 tablet Fluticasone Nasal [place] [Flonase Nasal [place]] 2 spr EA NOSTRIL DAILY #16 gm Is patient prescribed a controlled substance at d/c from ED?: No Referrals: Brennen Lorenz MD [Primary Care Provider] - 1-2 days Time of Disposition: 15:55
[2024-03-10 16:23] VITALS: BP 97/66; PULSE 66
== END 2024-03-10 16:23 | disposition home or self-care (01) ==
LOC: EC 12:15
DX: J32.9 Chronic sinusitis, unspecified (principal); Z88.0 Allergy status to penicillin; Z90.89 Acquired absence of other organs
CPT/HCPCS: 36415; 80053; 85025; 81003; 81025; 87636; 70450; 99284; 96374; 96375 ×3; J1200; J1100; J2765; J3475; J1885